=== PATIENT | female | born 1960 | race Caucasian/White ===

== ENCOUNTER → 2016-09-16 | Outpatient (CLI) | payer BC ==
[~2016-09-16] MED LIST: DICL1GEL28 TOP; LSN/2025 PO; MCR25 PO; METF-384 PO; OXYC-57 PO; PANT40TA PO; PIRO-104 PO; SIMV80TA2 PO; TRAMTAB5 PO
[2016-09-16 12:38] LABS: ESTIMATED AVERAGE GLUCOSE 177 mg/dl; HA1C FLAG Normal (Normal)
== END | disposition home or self-care (01) ==
LOC: C.LAB1850 09:38
PROVIDERS: ATTEND Internal Medicine
DX: M25.531 Pain in right wrist (principal)

== ENCOUNTER → 2016-10-30 | Outpatient (CLI) | payer BC ==
--- NOTE | 2016-10-30 10:13 | DIAGNOSTIC IMAGING REPORT ---
LEFT KNEE 1 OR 2 VIEWS ROUTINE CLINICAL HISTORY: M25.562 Left knee [id number] pain COMPARISON: None. DISCUSSION: Cortical fracture superior patella. This is superimposed upon a congenital bipartite patella. There is a possible fracture of the superior osteophyte. There is a small joint effusion. There is evidence of chondrocalcinosis. There is no evidence for soft tissue swelling. 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 Chondrocalcinosis. Electronically signed by: Wayne Garcia M.D. 10/30/2016 10:12 AM Dictated Date/Time: 10/30/2016 10:10 AM
== END | disposition home or self-care (01) ==
LOC: C.RAD1850 09:53
PROVIDERS: ATTEND Physician Assistant
DX: M25.562 Pain in left knee (principal)

== ENCOUNTER → 2016-11-12 | Outpatient (CLI) | payer BC ==
--- NOTE | 2016-11-12 15:18 | DIAGNOSTIC IMAGING REPORT ---
MRI OF THE LEFT KNEE CLINICAL HISTORY: Left knee pain. COMPARISON STUDY: Radiographs of left knee dated 10/30/2016. TECHNIQUE: MRI of the left knee was performed utilizing proton density, T1, and T2-weighted sequences in the axial, sagittal, coronal planes. IV contrast was not administered for this examination. FINDINGS: Menisci: Linear increased signal within the posterior horn of the medial meniscus likely represents mucoid degeneration as this does not clearly extend to the articular surface. The menisci are otherwise normal in appearance. Ligaments: The anterior and posterior cruciate ligaments are intact. The medial and lateral collateral ligaments are within normal limits. Extensor mechanism: The extensor mechanism is intact. Hoffa's fat pad is normal in appearance. Articular cartilage and bone: There is significant chondromalacia patella, with extent full thickness complete cartilage loss along the lateral patellar facet. There is also full thickness cartilage loss in the underlying femoral trochlea. There is approximately 50% thinning of the articular cartilage along the medial patellar facet. There is mild subchondral edema and subchondral cyst formation seen within the lateral patellar facet. There is only minimal degenerative thinning of the articular cartilage of the medial and lateral compartments. There is no MRI evidence of fracture. Degenerative subchondral cyst formation is seen peripherally within the medial tibial plateau. There is also degenerative geode formation noted in the tibial spine. This measures up to 1 cm. There are marginal osteophytes, lateral large than medial. Large patellar enthesophytes are observed. Joint effusion: There is a moderate joint effusion. There is a 4 mm joint body along the medial femoral condyle, best seen on axial image #21. Joint bodies are also suspected in the suprapatellar region. Soft tissues: There is mild subcutaneous soft tissue edema noted along the lateral aspect of the knee. There is mild symmetric atrophy of the regional musculature. No intramuscular edema is suggested. IMPRESSION: 1. Advanced chondromalacia patella with full-thickness cartilage loss throughout the lateral patellar facet and the underlying femoral trochlea. There is associated subchondral cyst formation and mild marrow edema. 2. The articular cartilage in the medial and lateral compartments is largely maintained. 3. Degenerative geode formation is noted in the proximal tibia as above. 4. Mucoid degeneration versus intrasubstance tear is noted in the posterior horn of the medial meniscus. Degeneration is favored. 5. There is no evidence of ligamentous injury in the left knee. The lateral meniscus is normal in appearance. 6. Joint effusion and joint bodies. Electronically signed by: Asif Steel M.D. 11/12/2016 3:17 PM Dictated Date/Time: 11/12/2016 3:08 PM
== END | disposition home or self-care (01) ==
LOC: C.MRI 14:15
PROVIDERS: ATTEND Family Medicine Sports Medicine
DX: M25.562 Pain in left knee (principal); Q74.1 Congenital malformation of knee; M25.462 Effusion, left knee

== ENCOUNTER → 2016-11-20 | Outpatient (CLI) | payer BC | END | disposition home or self-care (01) | LOC: C.RDSM 09:35 | PROVIDERS: ATTEND Physical Medicine & Rehabilitation Sports Medicine | DX: M25.562 Pain in left knee (principal) ==

== ENCOUNTER → 2017-02-10 | Day surgery (SDC) | payer BC ==
[2017-01-19 09:49] VITALS: Ht 153.7 cm; Wt 65.9 kg
[~2017-02-10] VITALS: Ht 153.7 cm; Wt 65.9 kg
[~2017-02-10] MED LIST changes: -DICL1GEL28 TOP; +IOPAMIDOL INJ 61% 15 ML VIAL ONE; +LIDOCAINE HCL 1% MPF 5 ML VIAL ONE; +SODIUM CHLORIDE 0.9% INJ 10 ML VIAL ONE
[2017-02-10 14:36] VITALS: TEMP 37.3
--- NOTE | 2017-02-10 14:49 | Discharge Instructions ---
Discharge Instructions Date of Service Feb 10, 2017. Visit Reason for Visit: Lumbar Radiculopathy Discharge Discharge Diagnosis / Problem: left leg pain Discharge Goals Goal(s): Decrease discomfort, Improve function Medications Stopped Medications Name(s): proxicam stopped. last dose on wednesday. Activity Recommendations Activity Limitations: resume your previous activity Anesthesia . Post Anesthesia Instructions: If you have had General Anesthesia or IV Sedation: * Do not drive today. * Resume driving when surgeon permits. * Do not make important decisions or sign legal documents today. * Call surgeon for: 1. Temperature elevations greater than 101 degrees F. 2. Uncontrollable pain. 3. Excessive bleeding. 4. Persistent nausea and vomiting. 5. Medication intolerance (nausea, vomiting or rash). * For nausea and vomiting use only clear liquids such as: tea, soda, bouillon until nausea subsides, then gradually increase diet as tolerated. * If you have any concerns or questions, call your surgeon's office. If physician is unavailable and it is an emergency, call 911 or go to the nearest emergency room. . Diet Recommendations Recommended Home Diet: resume previous diet Procedures Procedures Performed: LUMBAR EPIDURAL STEROID INJECTION Pending Studies Studies pending at discharge: no Medical Emergencies . Who to Call and When: Medical Emergencies: If at any time you feel your situation is an emergency, please call 911 immediately. . Non-Emergent Contact Non-Emergency issues call your: Specialist . . "Provider Documentation" section prepared by Adam Davis. .
[2017-02-10 14:55] VITALS: BP 112/73; PULSE 73; O2SAT 97
--- NOTE | 2017-02-10 15:21 | OPERATIVE REPORT ---
DATE OF OPERATION: 02/10/2017 PREOPERATIVE DIAGNOSIS: Grade-1 L5-S1 spondylolisthesis with left lower extremity radiculopathy. POSTOPERATIVE DIAGNOSIS: Same. PROCEDURE: Left paramedian L5-S1 intralaminar epidural steroid injection under fluoroscopic guidance. INDICATIONS: The patient is a 56-year-old white female who underwent a steroid injection in November 2015. She had done very well up until a short time ago when she began having the radicular pain returned. She presents today for an epidural injection into the back area. She has pain that is radicular in nature. PHYSICAL EXAMINATION: GENERAL: Pleasant female seated comfortably in no apparent distress. MUSCULOSKELETAL: She has tenderness to palpation over her left sciatic notch. She had normal lower extremity strength. Negative seated straight leg raises. Intact sensation distally. CONSENT: Verbal and written consent was obtained from the patient. Risks and benefits were reviewed. Risks include, but are not limited to epidural abscess, epidural hematoma, allergic reaction, and dural puncture. The patient wishes to proceed. DESCRIPTION OF PROCEDURE: The patient was taken back to the special procedures room of the [facility] and maintained in a prone position. Backside was cleansed with Betadine x3 and a dry sterile dressing was applied. Fluoroscope was used to identify the L5-S1 intralaminar space and overlying skin on the left side was anesthetized with 4 mL of lidocaine 1% with a 25-gauge 1-1/2 inch needle. A 22-gauge 3-1/2 inch Tuohy needle was then directed down towards the intralaminar space. It was advanced under lateral fluoroscopic guidance and loss of resistance was noted at a depth of 5.5 cm. Isovue-300 contrast 1 mL was injected in which demonstrated epidural uptake pattern involving the S1 nerve root. In addition, she then underwent injection after very slow introduction of the medicine after negative aspiration. DISPOSITION: 1. The patient was taken out into the discharge recovery area, where she will be discharged home once discharge criteria have been met. 2. Follow up in the [facility] office in 2-4 weeks. I attest to the content of the Intraoperative Record and any orders documented therein. Any exceptions are noted below. NIURKA
== END | disposition home or self-care (01) ==
LOC: X.SURG 13:55
PROVIDERS: ATTEND Physical Medicine & Rehabilitation
DX: M43.17 Spondylolisthesis, lumbosacral region (principal); M54.17 Radiculopathy, lumbosacral region; Z79.899 Other long term (current) drug therapy; Z79.84 Long term (current) use of oral hypoglycemic drugs

== ENCOUNTER → 2017-05-05 | Outpatient (CLI) | payer BC ==
[~2017-05-05] MED LIST changes: -IOPAMIDOL INJ 61% 15 ML VIAL ONE; -LIDOCAINE HCL 1% MPF 5 ML VIAL ONE; -SODIUM CHLORIDE 0.9% INJ 10 ML VIAL ONE
--- NOTE | 2017-05-05 16:15 | DIAGNOSTIC IMAGING REPORT ---
(RENAL)RETROPERITON COMP HISTORY: 56 years-old Female R31.9 [id number] acute hematuria COMPARISON: CT abdomen and pelvis 07/30/2010 TECHNIQUE: Multiple real-time sonographic images of the kidneys and urinary bladder were obtained assessing grayscale appearance and color flow FINDINGS: Right kidney measures 10.7 x 5.8 x 6.0 cm and is unremarkable without renal calculi or hydronephrosis. No focal mass lesions identified on the right. The left kidney measures 11.1 x 6.4 x 5.7 cm. There is an echogenic non-shadowing focus of the interpolar left kidney, 3 mm suggesting a nonobstructing calculus. There is no hydronephrosis or focal mass lesions identified on the left. Urinary bladder is unremarkable with bilateral ureteral jets documented. IMPRESSION: 1. 3 mm non-shadowing echogenic focus of the interpolar left kidney suggests renal calculus without hydronephrosis. 2. Unremarkable sonographic appearance of the right kidney and urinary bladder. The above report was generated using voice recognition software. It may contain grammatical, syntax or spelling errors. Electronically signed by: Alex Maciel M.D. 05/05/2017 4:14 PM Dictated Date/Time: 05/05/2017 4:11 PM
== END | disposition home or self-care (01) ==
LOC: C.ULTR 15:34
PROVIDERS: ATTEND Physician Assistant
DX: R31.9 Hematuria, unspecified (principal)

== ENCOUNTER → 2017-05-10 | Outpatient (CLI) | payer BC ==
--- NOTE | 2017-05-10 07:49 | DIAGNOSTIC IMAGING REPORT ---
CT SCAN OF THE ABDOMEN AND PELVIS WITHOUT IV CONTRAST CLINICAL HISTORY: Nephrolithiasis. COMPARISON STUDY: Abdominal CT dated 07/30/10. Renal ultrasound dated 05/05/2017. TECHNIQUE: CT scan of the abdomen and pelvis is performed from the lung bases to the proximal femora. Images are reviewed in the axial, sagittal, and coronal planes. IV contrast was not administered for this examination as per the referring clinician. A dose lowering technique was utilized adhering to the principles of ALARA. CT DOSE: 610.63 mGy.cm FINDINGS: Lung bases: The heart is normal in size and without pericardial effusion. Coronary artery calcifications are identified. Small calcified pleural plaques are present in the right lung base. Linear atelectasis versus scarring is seen at the right lung base. No airspace consolidation is identified typical for pneumonia and there is no pleural effusion. There is a tiny hiatal hernia. Liver: The unenhanced liver is normal in size, contour, and attenuation. There is no intrahepatic biliary ductal dilatation. Gallbladder: Unremarkable. Spleen: Normal in size and attenuation. Pancreas: The unenhanced pancreas is moderately atrophic and grossly unremarkable. Adrenal glands: Unremarkable. Kidneys: The unenhanced kidneys are normal in size and without hydronephrosis. Mild fullness of the right renal collecting systems unchanged from the 2011 examination. There are no renal calculi identified. There is no evidence of contour deforming renal mass lesion. Abdominal vasculature: The abdominal aorta is normal in course and caliber noting mild to moderate atherosclerotic calcification. Bowel: There are scattered colonic diverticula without CT evidence of acute diverticulitis. Mild colonic fecal retention is observed. No bowel obstruction is seen. The appendix is well-visualized and normal. Peritoneum: There is no intraperitoneal free air or abdominal ascites. There is a fat-containing umbilical hernia. Lymphadenopathy: None. Pelvic viscera: The bladder is normal as visualized. The uterus is surgically absent noting a prominent cervical cuff. No adnexal lesion is seen . Surgical clips are noted in the pelvis. Skeletal structures: The skeletal structures are osteopenic. There is mild to moderate lumbosacral spondylosis and scoliosis. There is grade 1 anterolisthesis at L5-S1. No lytic or blastic lesions are seen. IMPRESSION: 1. There are no acute infectious or inflammatory findings in the abdomen or pelvis. 2. No renal calculi are identified as clinically queried. 3. Calcification containing pleural plaques are present the right lung base. These were also seen in 2010 and are likely chronic. 4. Additional findings as above. Electronically signed by: Asif Steel M.D. 05/10/2017 7:48 AM Dictated Date/Time: 05/10/2017 7:40 AM
== END | disposition home or self-care (01) ==
LOC: C.CTS 06:28
PROVIDERS: ATTEND Physician Assistant
DX: N20.0 Calculus of kidney (principal); R91.8 Other nonspecific abnormal finding of lung field

== ENCOUNTER 2017-09-09 21:43 | Emergency (ER) | payer BC, OTHER ==
[~2017-09-09] VITALS: Ht 153.7 cm; Wt 68.4 kg
[2017-09-09 21:45] VITALS: TEMP 36.7; Ht 153.7 cm; Wt 68.4 kg
[2017-09-09] MEDS ORDERED: CLC/300 PO (23:00)
[2017-09-09] MEDS ORDERED: ZCR80 PO (23:00)
[2017-09-09] MEDS ORDERED: GLYB2.5T7 PO (23:00)
[2017-09-09 23:27] LABS: BASO % 0.4 %; BASO ABS # 0.03 K/uL (0-0.2); EOS % 1.9 %; EOS ABS # 0.13 K/uL (0-0.5); HEMATOCRIT 33.9 % (37-47); HEMOGLOBIN 11.9 g/dL (12.0-16.0); IG# 0.01 K/uL (0.00-0.02); LYMPH % 43.4 %; LYMPH ABS # 2.92 K/uL (1.2-3.4); MEAN CELL VOLUME 90.9 fL (80-100); MEAN CORPUSCULAR HEMOGLOBIN 31.9 pg (25-34); MEAN CORPUSCULAR HGB CONC 35.1 g/dl (32-36); MEAN PLATELET VOLUME 9.8 fL (7.4-10.4); MONO % 8.9 %; NEUT % 45.3 %; NEUT ABS # 3.04 K/uL (1.4-6.5); PLATELET COUNT 349 K/uL (130-400); RED CELL DISTRIBUTION WIDTH CV 12.4 % (11.5-14.5); RED CELL DISTRIBUTION WIDTH SD 41.3 fL (36.4-46.3); WHITE BLOOD COUNT 6.73 K/uL (4.8-10.8)
[2017-09-09 23:47] LABS: CALCIUM 9.4 mg/dl (8.5-10.1); CREATININE 0.87 mg/dl (0.60-1.20); POTASSIUM 3.7 mmol/L (3.5-5.1)
[2017-09-10 00:39] VITALS: BP 139/71; PULSE 85; O2SAT 96
--- NOTE | 2017-09-10 05:45 | EMERGENCY ROOM VISIT NOTE ---
History First contact with patient: 21:55 Chief Complaint: HEMATURIA Stated Complaint: BLOOD IN URINE History of Present Illness The patient is a 57 year old female who presents to the Emergency Room with complaints of red color to her urine today who states several months ago she had the same episode. Patient states she did have some beats today. She has a history of kidney stones. No recent exercise. Patient denies chest pain, dyspnea, abdominal pain, flank pain, dysuria, urinary frequency. She does not smoke. Review of Systems An 10 system review of systems was completed with positives and pertinent negatives listed in the HPI. Past Medical/Surgical History Diabetes, kidney stones, hyperlipidemia, GERD, hypertension, hysterectomy, shoulder surgery, arthritis Social History Smoking Status: Never Smoker Marital Status: single Occupation Status: employed Current/Historical Medications Scheduled Clindamycin HCl (Clindamycin HCl), PO UD Glyburide (Diabeta), 2.5 MG PO BID Hctz/Lisinopril (Lisinopril/Hctz 20/25 Mg), 1 TAB PO QAM Metformin Hcl (Glucophage), 1,000 MG PO BID Pantoprazole (Protonix), 40 MG PO QAM Piroxicam (Piroxicam), 20 MG PO BID Simvastatin (Zocor), 80 MG PO HS Simvastatin (Simvastatin), 80 MG PO DAILY Scheduled PRN Oxycodone/Acetaminophen 5MG/325MG (Percocet 5MG/325MG), 1 TABLET PO Q6H PRN for Pain Tramadol/Acetaminophen (Ultracet), PO Q6H PRN for / Physical Exam Vital Signs Date Time Temp Pulse Resp B/P (MAP) Pulse Ox O2 Delivery O2 Flow Rate FiO2 09/10/17 00:39 85 18 139/71 96 09/09/17 21:45 36.7 88 18 140/79 95 Room Air Physical Exam VITALS: Vitals are noted on the nurse's note and reviewed by myself. Vital signs stable. GENERAL: Pleasant female, in no acute distress, nondiaphoretic, well-developed well-nourished. SKIN: Capillary reflex less than 2 seconds. HEENT: Normocephalic. PERRLA. EOMI. Nares patent. Mucous membranes moist. Neck is supple without nuchal rigidity. HEART: Regular rate and rhythm without murmurs gallops or rubs. LUNGS: Clear to auscultation bilaterally without wheezes, rales or rhonchi. No retractions or accessory muscle use. ABDOMEN: Positive bowel sounds x 4. Normal tympanic percussion. Soft, nontender, without masses or organomegaly. [place] sign negative. No guarding or rebound tenderness. MUSCULOSKELETAL: No gross musculoskeletal defects. NEURO: Patient was alert and oriented to person place and time. Normal sensation to light and sharp touch. No focal neurological deficits. Medical Decision & Procedures Laboratory Results 09/09/17 22:16 Red Blood Count 3.73, Mean Corpuscular Volume 90.9, Mean Corpuscular Hemoglobin 31.9, Mean Corpuscular Hemoglobin Concent 35.1, Mean Platelet Volume 9.8, Neutrophils (%) (Auto) 45.3, Lymphocytes (%) (Auto) 43.4, Monocytes (%) (Auto) 8.9, Eosinophils (%) (Auto) 1.9, Basophils (%) (Auto) 0.4, Neutrophils # (Auto) 3.04, Lymphocytes # (Auto) 2.92, Monocytes # (Auto) 0.60, Eosinophils # (Auto) 0.13, Basophils # (Auto) 0.03 09/09/17 22:16 Test 09/09/17 22:04 09/09/17 22:16 Urine Color PINK Urine Appearance CLEAR (CLEAR) Urine pH (4.5-7.5) Urine Specific [place] 1.007 (1.000-1.030) Urine Protein NEG (NEG) Urine Glucose (UA) (NEG) Urine Ketones (NEG) Urine Occult Blood (NEG) Urine Nitrite (NEG) Urine Bilirubin (NEG) Urine Urobilinogen (NEG) Urine Leukocyte Esterase (NEG) Urine RBC 0-4 /hpf (0-4) Urine WBC 1-5 /hpf (0-5) Urine Epithelial Cells 10-20 /lpf (0-5) Urine Bacteria NEG (NEG) White Blood Count 6.73 K/uL (4.8-10.8) Red Blood Count 3.73 M/uL (4.2-5.4) Hemoglobin 11.9 g/dL (12.0-16.0) Hematocrit 33.9 % (37-47) Mean Corpuscular Volume 90.9 fL (80-100) Mean Corpuscular Hemoglobin 31.9 pg (25-34) Mean Corpuscular Hemoglobin Concent 35.1 g/dl (32-36) Platelet Count 349 K/uL (130-400) Mean Platelet Volume 9.8 fL (7.4-10.4) Neutrophils (%) (Auto) 45.3 % Lymphocytes (%) (Auto) 43.4 % Monocytes (%) (Auto) 8.9 % Eosinophils (%) (Auto) 1.9 % Basophils (%) (Auto) 0.4 % Neutrophils # (Auto) 3.04 K/uL (1.4-6.5) Lymphocytes # (Auto) 2.92 K/uL (1.2-3.4) Monocytes # (Auto) 0.60 K/uL (0.11-0.59) Eosinophils # (Auto) 0.13 K/uL (0-0.5) Basophils # (Auto) 0.03 K/uL (0-0.2) RDW Standard Deviation 41.3 fL (36.4-46.3) RDW Coefficient of Variation 12.4 % (11.5-14.5) Immature Granulocyte % (Auto) 0.1 % Immature Granulocyte # (Auto) 0.01 K/uL (0.00-0.02) Anion Gap 9.0 mmol/L (3-11) Est Creatinine Clear Calc Drug Dose 60.9 ml/min Estimated GFR () 84.5 Estimated GFR (Non- 72.9 BUN/Creatinine Ratio 22.0 (10-20) Calcium Level 9.4 mg/dl (8.5-10.1) Total Creatine Kinase 164 U/L (26-192) ED Course Prior records reviewed and summarized as above. Triage Nursing notes reviewed. The patient's history was concerning for red color to urine Differential diagnosis: Etiologies such as side effect of eating beats, UTI, renal colic, kidney problems, rhabdomyolysis as well as others were entertained.. Physical examination: As above ER treatment provided: Patient was observed On reassessment the patient felt better. Diagnostics interpreted by me: The labs revealed urine negative hematuria. Stable H&H. Normal creatinine Imaging studies: CT SCAN OF THE ABDOMEN AND PELVIS WITHOUT IV CONTRAST CLINICAL HISTORY: Nephrolithiasis. COMPARISON STUDY: Abdominal CT dated 07/30/10. Renal ultrasound dated 05/05/2017. TECHNIQUE: CT scan of the abdomen and pelvis is performed from the lung bases to the proximal femora. Images are reviewed in the axial, sagittal, and coronal planes. IV contrast was not administered for this examination as per the referring clinician. A dose lowering technique was utilized adhering to the principles of ALARA. CT DOSE: 610.63 mGy.cm FINDINGS: Lung bases: The heart is normal in size and without pericardial effusion. Coronary artery calcifications are identified. Small calcified pleural plaques are present in the right lung base. Linear atelectasis versus scarring is seen at the right lung base. No airspace consolidation is identified typical for pneumonia and there is no pleural effusion. There is a tiny hiatal hernia. Liver: The unenhanced liver is normal in size, contour, and attenuation. There is no intrahepatic biliary ductal dilatation. Gallbladder: Unremarkable. Spleen: Normal in size and attenuation. Pancreas: The unenhanced pancreas is moderately atrophic and grossly unremarkable. Adrenal glands: Unremarkable. Kidneys: The unenhanced kidneys are normal in size and without hydronephrosis. Mild fullness of the right renal collecting systems unchanged from the 2011 examination. There are no renal calculi identified. There is no evidence of contour deforming renal mass lesion. Abdominal vasculature: The abdominal aorta is normal in course and caliber noting mild to moderate atherosclerotic calcification. Bowel: There are scattered colonic diverticula without CT evidence of acute diverticulitis. Mild colonic fecal retention is observed. No bowel obstruction is seen. The appendix is well-visualized and normal. Peritoneum: There is no intraperitoneal free air or abdominal ascites. There is a fat-containing umbilical hernia. Lymphadenopathy: None. Pelvic viscera: The bladder is normal as visualized. The uterus is surgically absent noting a prominent cervical cuff. No adnexal lesion is seen . Surgical clips are noted in the pelvis. Skeletal structures: The skeletal structures are osteopenic. There is mild to moderate lumbosacral spondylosis and scoliosis. There is grade 1 anterolisthesis at L5-S1. No lytic or blastic lesions are seen. IMPRESSION: 1. There are no acute infectious or inflammatory findings in the abdomen or pelvis. 2. No renal calculi are identified as clinically queried. 3. Calcification containing pleural plaques are present the right lung base. These were also seen in 2011 and are likely chronic. 4. Additional findings as above. Electronically signed by: Asif Steel M.D. [~ rep ct add3]] (RENAL)RETROPERITON COMP HISTORY: 56 years-old Female R31.9 [id number] acute hematuria COMPARISON: CT abdomen and pelvis 07/30/2010 TECHNIQUE: Multiple real-time sonographic images of the kidneys and urinary bladder were obtained assessing grayscale appearance and color flow FINDINGS: Right kidney measures 10.7 x 5.8 x 6.0 cm and is unremarkable without renal calculi or hydronephrosis. No focal mass lesions identified on the right. The left kidney measures 11.1 x 6.4 x 5.7 cm. There is an echogenic non-shadowing focus of the interpolar left kidney, 3 mm suggesting a nonobstructing calculus. There is no hydronephrosis or focal mass lesions identified on the left. Urinary bladder is unremarkable with bilateral ureteral jets documented. IMPRESSION: 1. 3 mm non-shadowing echogenic focus of the interpolar left kidney suggests renal calculus without hydronephrosis. 2. Unremarkable sonographic appearance of the right kidney and urinary bladder. The above report was generated using voice recognition software. It may contain grammatical, syntax or spelling errors. Electronically signed by: Alex Maciel M.D. This appears to be isolated urine discoloration that could be related to eating the beats. Patient had no hematuria on urinalysis. Recent ultrasound of the kidneys were unremarkable along with CT scan. Patient was advised to follow-up with her family care doctor in a few days for further evaluation treatment or here in the ER sooner for abdominal pain, fevers, urinary problems, worsening signs or symptoms or as needed. By the evaluation outlined above emergent etiologies such as UTI, renal colic, as well as others were deemed relatively unlikely. The pt informed about the findings as listed above. All questions were answered and pleased with the treatment. Return instructions were outlined and the patient was discharged in stable condition. Referral: The patient was referred back to primary care physician for follow-up in 2 to 3 days for a recheck of the current condition. The chart was completed utilizing [employer] voice recognition software. Grammatical errors, random word insertions, pronoun errors, and incomplete sentences are an occassional consequence of this system due to software limitations, ambient noise, and hardware issues. Any formal questions or concerns about the content, text, or information contained within the body of this dictation should be directly addressed to the physician construction assistant for clarification. Medical Decision As above Medication Reconcilliation Current Medication List: was personally reviewed by me Blood Pressure Screening Patient's blood pressure: Normal blood pressure Impression Primary Impression: Urine discoloration Additional Impression: Anemia Departure Information Dispostion Home / Self-Care Condition GOOD Forms WORK / SCHOOL INSTRUCTIONS, HOME CARE DOCUMENTATION FORM, Days off work : 2 Work Instructions, IMPORTANT VISIT INFORMATION Patient Instructions My [facility] Additional Instructions Keep a log of your food and drink intake and review this with your family care doctor. Certain foods and drinks can change the color of your urine. Rest and drink plenty of fluids as tolerated. Continue current medications. Return to the ER immediately for worsening or persistent urine problems, abdominal pain, vomiting, fevers, chest pains, difficulty breathing, worsening of your condition, or as needed. Follow up with your primary physician in 2-3 days for a recheck of your current condition. Problem Qualifiers
== END 2017-09-10 00:40 | disposition home or self-care (01) ==
LOC: C.EDB 21:44 → C.EDC 09-10 00:40
DX: R82.90 Unspecified abnormal findings in urine (principal); D64.9 Anemia, unspecified; E78.5 Hyperlipidemia, unspecified; I10 Essential (primary) hypertension; E11.9 Type 2 diabetes mellitus without complications; M19.90 Unspecified osteoarthritis, unspecified site; K21.9 Gastro-esophageal reflux disease without esophagitis; Z87.442 Personal history of urinary calculi; Z79.84 Long term (current) use of oral hypoglycemic drugs; Z79.899 Other long term (current) drug therapy

== ENCOUNTER → 2017-10-27 | Outpatient (CLI) | payer OTHER ==
[~2017-10-27] MED LIST changes: +CLC/300 PO; +GLYB2.5T7 PO; -MCR25 PO; +ZCR80 PO
== END | disposition home or self-care (01) ==
LOC: C.PATHSPEC 17:12
PROVIDERS: ATTEND Urology
DX: R31.9 Hematuria, unspecified (principal)

== ENCOUNTER → 2017-11-01 | Day surgery (SDC) | payer OTHER ==
[2017-10-28 15:23] VITALS: Ht 153.7 cm; Wt 65.9 kg
[~2017-11-01] VITALS: Ht 153.7 cm; Wt 65.9 kg
[~2017-11-01] MED LIST changes: -CLC/300 PO; +IOPAMIDOL INJ 61% 15 ML VIAL ONE; +LIDOCAINE HCL 1% MPF 5 ML VIAL ONE; +SODIUM CHLORIDE 0.9% INJ 10 ML VIAL ONE
--- NOTE | 2017-11-01 14:19 | History & Physical Bridge - [place] ---
H&P Re-Evaluation Bridge Note: I have examined the patient, reviewed the History & Physical and in the interval since the performance of the History & Physical I have noted the following changes of clinical significance: No changes noted
--- NOTE | 2017-11-01 14:40 | [facility] Post Operative Brief Note ---
Immediate Operative Summary Operative Date November 01, 2017. Pre-Operative Diagnosis Lumbar spondylolisthesis with left lower extremity radiculopathy Post-Operative Diagnosis Same Procedure(s) Performed Lumbar Epidural Steroid Injection Surgeon Dr. Scarlett Davis Organizational Effectiveness Consultant Surgeon(s) None Estimated Blood Loss 0 Findings Consistent with Post-Op Diagnosis Specimens NA Drains None Anesthesia Type Local Complication(s) none Disposition Disposition:
[2017-11-01 14:41] VITALS: TEMP 37
--- NOTE | 2017-11-01 14:41 | Discharge Instructions ---
Discharge Instructions Date of Service November 01, 2017. Visit Reason for Visit: Lumbar Radiculopathy; Spondylolisthesis Discharge Discharge Diagnosis / Problem: left leg pain Discharge Goals Goal(s): Decrease discomfort, Improve function Activity Recommendations Activity Limitations: resume your previous activity Anesthesia . Post Anesthesia Instructions: If you have had General Anesthesia or IV Sedation: * Do not drive today. * Resume driving when surgeon permits. * Do not make important decisions or sign legal documents today. * Call surgeon for: 1. Temperature elevations greater than 101 degrees F. 2. Uncontrollable pain. 3. Excessive bleeding. 4. Persistent nausea and vomiting. 5. Medication intolerance (nausea, vomiting or rash). * For nausea and vomiting use only clear liquids such as: tea, soda, bouillon until nausea subsides, then gradually increase diet as tolerated. * If you have any concerns or questions, call your surgeon's office. If physician is unavailable and it is an emergency, call 911 or go to the nearest emergency room. . Diet Recommendations Recommended Home Diet: resume previous diet Procedures Procedures Performed: Lumbar Epidural Steroid Injection Pending Studies Studies pending at discharge: no Medical Emergencies . Who to Call and When: Medical Emergencies: If at any time you feel your situation is an emergency, please call 911 immediately. . Non-Emergent Contact Non-Emergency issues call your: Specialist . . "Provider Documentation" section prepared by Adam Davis. .
[2017-11-01 14:57] VITALS: BP 133/87; PULSE 74; O2SAT 97
--- NOTE | 2017-11-01 19:51 | OPERATIVE REPORT ---
DATE OF OPERATION: 11/01/2017 PREOPERATIVE DIAGNOSES: Grade 1 L5-S1 spondylolisthesis, left lower extremity radiculopathy. POSTOPERATIVE DIAGNOSIS: Grade 1 L5-S1 spondylolisthesis, left lower extremity radiculopathy. PROCEDURE: Left paramedian L5-S1 intralaminar epidural steroid injection under fluoroscopic guidance. INDICATIONS: Patient is a 57-year-old white female who presents today for an epidural injection. She has received these in the past with good results, the last one being done in 04/2017. Recently the pain has been starting to return and is problematic down her left leg. CONSENT: Verbal and written consent was obtained from the patient. Risks and benefits were reviewed. Risks include but are not limited to epidural abscess, epidural hematoma, allergic reaction, dural puncture. Patient wishes to proceed. DESCRIPTION OF PROCEDURE: Patient was taken back to the special procedures room of [facility]. She was maintained in a prone position. Backside was cleansed with Betadine x3 and a dry sterile dressing was applied. Fluoroscope was used to identify L5-S1 intralaminar space. Overlying skin on the left side was anesthetized with 4 mL of lidocaine 1% 25 gauge 1-1/2-inch needle and with 4 mL of lidocaine 1% 22-gauge 3-1/2 inch Tuohy needle was then directed down towards the intralaminar space. It was advanced under lateral fluoroscopic guidance. Loss of resistance was noted at a depth of 5 cm. Isovue-300 contrast 1 mL was injected which demonstrated epidural uptake pattern which was confirmed with a lateral view. She then underwent injection after negative aspiration of 40 mg of Depo-Medrol, 4 mL of preservative free sodium chloride. Injection was well tolerated and reproduced a familiar transient radicular sensation down the left leg. DISPOSITION: 1. Patient is taken out into the discharge recovery area where she will be discharged home once discharge criteria have been met. 2. Follow up in the [facility] office in 4 weeks' time. I attest to the content of the Intraoperative Record and any orders documented therein. Any exception s are noted below.
== END | disposition home or self-care (01) ==
LOC: X.SURG 13:28
PROVIDERS: ATTEND Physical Medicine & Rehabilitation
DX: M43.17 Spondylolisthesis, lumbosacral region (principal); M54.10 Radiculopathy, site unspecified

== ENCOUNTER → 2018-01-18 | Outpatient (CLI) | payer OTHER ==
[~2018-01-18] MED LIST changes: -IOPAMIDOL INJ 61% 15 ML VIAL ONE; -LIDOCAINE HCL 1% MPF 5 ML VIAL ONE; +LISI20TA11 PO; -LSN/2025 PO; -SODIUM CHLORIDE 0.9% INJ 10 ML VIAL ONE
--- NOTE | 2018-01-18 08:34 | DIAGNOSTIC IMAGING REPORT ---
CERVICAL WITHOUT CONTRAST HISTORY: Pain. Neuropathy. SPONDYLIOSIS CERV SPINE TECHNIQUE: Multiplanar multisequence MRI of the cervical spine was performed without the use of contrast. COMPARISON STUDY: None. FINDINGS: Significant degenerative disc change throughout. Arterial extradural defects at virtually all levels of the cervical region. Signal characteristics of the cervical cord appear unremarkable. C2-C3: Negative C3-C4: Moderate broad-based disc herniation. Mild impact anterior cervical cord. Significant narrowing right to lesser extent left neuroforamina. C4-C5: Moderate osteophytic narrowing of the neuroforamina bilaterally C5-C6: Broad-based disc herniation with moderate impact anterior aspect cervical cord. Significant narrowing of the neuroforamina bilaterally C6-C7: No significant central canal or neural foraminal narrowing. C7-T1: No significant central canal or neural foraminal narrowing. IMPRESSION: 1. Considerable degenerative disc change throughout the entire cervical region. 2. Broad-based bulging/herniated disc C3-C4 with moderate impact anterior cervical cord and significant narrowing of the right and to a lesser extent left neuroforamina. 3. Moderate osteophytic narrowing neuroforamina bilaterally C4-C5. 4. Broad-based disc herniation C5-C6 with moderate impact anterior cervical cord and narrowing of the neuroforamina bilaterally. The above report was generated using voice recognition software. It may contain grammatical, syntax or spelling errors. Electronically signed by: Wayne Garcia M.D. 01/18/2018 8:32 AM Dictated Date/Time: 01/18/2018 8:27 AM
== END | disposition home or self-care (01) ==
LOC: C.MRI 07:07
PROVIDERS: ATTEND Physical Medicine & Rehabilitation
DX: M47.812 Spondylosis without myelopathy or radiculopathy, cervical region (principal)

== ENCOUNTER 2024-07-24 16:33 | Observation (INO) ==
--- NOTE | 2024-07-24 17:07 | ED Triage Note ---
Date of Service July 24, 2024 Provider in Triage Author: Summer Jackson History of Present Illness This patient was briefly evaluated while in triage. An abbreviated physical exam was performed. This patient is a 63-year-old Female who presents to the ED for evaluation after vomiting. Pt. states Wednesday evening went out to dinner. 3 hours later, started vomiting. Had vomiting for about 24 hours. Assumed food poisoning. Today, having headache, "gut pain", pain "into the middle of my back", and decreased appetite. No vomiting in over 24 hours. Physical Exam VITALS: Vitals are noted on the nurse's note and reviewed by myself. GENERAL: This is a 63 year old female, in no acute distress, nondiaphoretic, well-developed well-nourished. SKIN: No obvious rashes, edema, erythema HEAD: Normocephalic atraumatic. EYES: Conjunctivae without injection, sclerae without icterus. NECK: No JVD. LUNGS: No retractions or accessory muscle use. MUSCULOSKELETAL: Normal gait. NEURO: Patient was alert and oriented to person place and time. No focal neurological deficits. Initial orders for labs and / or imaging were placed and patient was placed in the waiting area until a bed is available. Please see further documentation for the full ED course.
[2024-07-24] MEDS: SODIUM CHLORIDE 0.9% 1,000 ML IV ONE (17:29)
[2024-07-24] MEDS: ACETAMINOPHEN 1,000 MG/100 ML VIAL IV STA (17:29)
[2024-07-24 17:42] LABS: Basophils # (auto) 0.04 K/uL (0.00-0.20); Basophils % (auto) 0.5 %; Eosinophils # (auto) 0.08 K/uL (0.00-0.50); Hematocrit (blood only) 28.3 % (37.0-47.0); Hemoglobin 9.9 g/dl (12.0-16.0); Immature Granulocytes # (auto) 0.02 K/uL (0.01-0.20); Immature Granulocytes % (auto) 0.3 %; Lymphocytes # (auto) 2.18 K/uL (1.20-3.40); Lymphocytes % (auto) 28.3 %; Mean Corpuscular Hemoglobin 31.8 pg (25.0-34.0); Mean Platelet Volume 10.5 fL (9.4-12.4); Monocytes # (auto) 0.53 K/uL (0.11-0.59); Monocytes % (auto) 6.9 %; Neutrophils # (auto) 4.86 K/uL (1.40-6.50); Platelet Count 267 K/uL (130-400); RDW Coefficient of Variation 12.8 % (11.5-14.5); RDW Standard Deviation 42.6 fL (36.4-46.3); Red Blood Count 3.11 M/uL (4.20-5.40); White Blood Count 7.71 K/ul (4.8-10.8)
[2024-07-24 17:58] LABS: Albumin Level 4.3 gm/dl (3.4-5.0); Bilirubin,Total 0.4 mg/dl (0.2-1.0); Calcium 10.6 mg/dl (8.6-10.3); Potassium 3.5 mmol/L (3.5-5.1)
[2024-07-24 18:05] LABS: Albumin Globulin Ratio 1.8 (0.9-2); BUN Creatinine Ratio 44.6 (10-20); Creatinine Clr Calc Pharmacy 62.1 ml/min; Globulin 2.4 gm/dl (2.5-4.0); Total Protein 6.7 gm/dl (6.0-8.3)
[2024-07-24 18:14] LABS: Partial Thromboplastin Ratio 0.8; Partial Thromboplastin Time 21 Seconds (21-31); Prothrombin Time 10.4 Seconds (9.0-12.0)
[2024-07-24] MEDS: OPTIRAY 320 100ml IV ONE (18:46)
[2024-07-24 19:24] LABS: Appearance Urine Clear (Clear); Bilirubin Urine Negative (Negative); Blood Urine Negative (Negative); Color Urine Yellow; Glucose Urine UA Negative (Negative); Ketones Urine Negative (Negative); Leukocyte Esterase Urine Negative (Negative); Nitrite Urine Negative (Negative); Protein Urine Negative (Negative); Specific Gravity Urine 1.011 (1.000-1.030); Urobilinogen Urine Negative (Negative); pH Urine 6.5 (4.5-7.5)
[2024-07-24] MEDS: PANTOprazole 40 MG in DEXTROSE 5% MINI-B 100 ML IV SCH (20:37)
[2024-07-24] MEDS: PANTOprazole 80 MG in DEXTROSE 5% 100 ML IV ONE (20:37)
[2024-07-24] MEDS: PANTOPRAZOLE BOLUS/DRIP IV STA (20:37)
--- NOTE | 2024-07-24 20:39 | History & Physical Report ---
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 States that her vomit was dark brown/black in color and was described as thick in consistency. Takes Piroxicam twice daily x months, h/o ETOH use and no recent use. ED workup H/H 9.9/28.3, Na 135, BUN 33, BUN/Cr ratio 44.6, and Ca 10.6. CTAP w/ no acute findings. Received 1L NSS and pantoprazole in ED. #GI bleed N/V dark in color and thick, w/ black stool x 1 day and some abdominal discomfort, unable to classify exactly how this feels at time of admission, just "odd." History of a scope "years ago" but unsure why and believes that it was WNL. Suspect UGI bleed given H/H and elevated BUN; Does take NSAIDs BID x months. One IV was in place at time of admission, 2 large bore IVs to be placed before transfer to unit. Hemodynamically stable at time of admission, no tachycardia and BP stable. - H&H on admission 9.03/18.3, will trend H/H q6hr, A- blood type, transfuse if Hg < 7; BUN 33 at admission; Hemoccult positive - HOLD ASA and piroxicam - NPO; no NG tube necessary at time of admission - Continue Protonix IV - GI consulted- appreciate input and recs #DMT2, insulin dependent H/o DMT2, started on insulin ~ 1 year ago. At home regimen glargine 26U qAM, lispro 4U w/ breakfast and 5U with dinner, metformin. - Hold po meds - Most recent A1C 05/2024 @ 7.6% - SSI with target BSG range 110-140mg/dL, CF 35, carb ratio 12; glargine 13U BID - BSG ACHS once eating, q6h while npo - Pharm glycemic management consult placed, appreciate assistance- Adjust regimen as needed #Sinusitis- started on Augmentin outpatient, symptoms overall controlled; held at admission given GI symptoms and do not want to worsen until GI is able to evaluate #Chronic pain, back- Gabapentin, oxycodone-acetaminophen #HTN- Chlorthalidone, lisinopril, amlodipine - held at admission #HLD- Rosuvastatin Dispo: Admit, med/tele VTE Prophylaxis: SCDs, no chemical prophylaxis at admission This document was dictated utilizing [employer]. Please excuse any grammatical errors that may be secondary to use of this software. 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 States that her vomit was dark brown/black in color and was described as thick in consistency. Emesis x 4, and her last BM was 1 few hours before arrival to the ED. Also states that her BM have been black in color and she has been having some dizziness as well, unable to categorize this further. Her co- worker noted that she appeared more pale than usual the day of arrival. Does take anti-inflammatories twice daily and states that she has been doing this for years. History of ETOH use but no longer uses, per patient. ED workup reveals H/H 9.9/28.3, no WBC, Na 135, BUN 33, BUN/Cr ratio 44.6, and Ca 10.6. CTAP w/ no acute findings; stable umbilical hernia, stable dilated CBD, mild colonic fecal loading, stable R calcified pleura plaques and mild pleural effusion/thickening. Received 1L NSS and pantoprazole in ED. Please see Dr. Sullivan's attestation for adjustments/additions to the treatment plan. Allergies Allergy/AdvReac Type Severity Reaction Status Date / Time Cipro Allergy Unknown HIVES VOMIT Verified 11/01/17 13:35 ciprofloxacin Allergy Unknown HIVES VOMIT Verified 07/24/24 20:18 erythromycin base Allergy Unknown SWELLING Verified 07/24/24 20:18 AND HIVES Sulfa (Sulfonamide Allergy Unknown SWELLING Verified 07/24/24 20:18 Antibiotics) AND HIVES dulaglutide [From Trulicity] AdvReac Intermediate Abdominal Verified 07/24/24 22:58 Pain fosfomycin AdvReac Intermediate Dizziness Verified 07/24/24 20:18 semaglutide [From Rybelsus] AdvReac Intermediate Abdominal Verified 07/24/24 22:58 Pain nitrofurantoin AdvReac Unknown Vomiting Verified 07/24/24 20:18 [From Macrobid] Home Medications Medication Instructions Recorded Confirmed Type lancets 30 gauge (StarCite, Part of Active NetworkTouch Delica #25 ea 02/03/19 07/17/24 History Lancets) cranberry fruit 450 mg tablet 0 mg PO QAM ##0 02/20/22 07/24/24 History (cranberry) diclofenac sodium 1 % topical gel 2 g topical QID PRN Pain 02/20/22 07/24/24 History methocarbamol 500 mg tablet 500 mg PO BID PRN muscle cramping 10/14/22 07/24/24 History mecobalamin (vitamin B12) 0 mg PO QAM 02/03/23 07/24/24 History aspirin 81 mg tablet,delayed 81 mg PO DAILY 07/21/23 07/24/24 History release (Adult Low Dose Aspirin) flash glucose scanning reader #1 ea 07/30/23 07/17/24 Rx (FreeStyle Twin 2 Glide) blood sugar diagnostic (OneTouch #200 ea 11/01/23 07/17/24 Rx Verio test strips) blood-glucose meter (OneTouch #1 ea 11/01/23 07/17/24 Rx Verio Flex Start kit) lancets 33 gauge (OneTouch Delica #200 ea 11/03/23 07/17/24 Rx Plus Lancet) pen needle, diabetic 32 gauge x #400 ea 11/26/23 07/17/24 Rx 5/32" flash glucose sensor (Kapow Eventsyle #2 ea 02/07/24 07/17/24 Rx Twin 2 Sensor kit) amlodipine 5 mg tablet 5 mg PO DAILY #90 tabs 06/19/24 07/24/24 Rx chlorthalidone 25 mg tablet 25 mg PO QAM #90 tabs 06/19/24 07/24/24 Rx fluticasone propionate 50 2 spray intranasal QAM PRN 06/19/24 07/24/24 Rx mcg/actuation nasal Congestion #48 grams spray,suspension lisinopril 40 mg tablet 40 mg PO QAM #90 tabs 06/19/24 07/24/24 Rx metformin 500 mg tablet,extended 1,000 mg (2 x 500 mg) PO BID #360 06/19/24 07/24/24 Rx release 24 hr tabs piroxicam 10 mg capsule 10 mg PO BID #180 caps 06/19/24 07/24/24 Rx rosuvastatin 20 mg tablet 20 mg PO HS #90 tabs 06/19/24 07/24/24 Rx oxycodone-acetaminophen 5 mg-325 1 - 2 tab PO BID PRN pain #60 tabs 06/30/24 07/24/24 Rx mg tablet insulin lispro 100 unit/mL See Rx Instructions subcut 07/14/24 07/24/24 Rx subcutaneous pen (Admelog SoloStar .COMPLEX #15 mL U-) amoxicillin 500 mg-potassium 1 tab PO BID 10 days #20 tabs 07/17/24 07/24/24 Rx clavulanate 125 mg tablet (Augmentin) cholecalciferol (vitamin D3) 25 0 mcg PO DAILY 07/24/24 07/24/24 History mcg (1,000 unit) tablet (Vitamin D3) gabapentin 300 mg capsule 300 mg PO QAM 07/24/24 07/24/24 History gabapentin 300 mg capsule 600 mg PO HS 07/24/24 07/24/24 History insulin glargine U-300 conc 300 26 unit subcut QAM 07/24/24 07/24/24 History unit/mL (1.5 mL) subcutaneous pen Past Med/Surg History Problem List GI bleed Jaw pain PND (post-nasal drip) Congestion of nasal sinus Sinusitis Spinal stenosis Vitamin B12 deficiency Vitamin D deficiency Diabetes mellitus type 2, insulin dependent Osteoarthritis (Chronic) Hypertension (Chronic) Hypercholesterolemia (Chronic) Type 2 diabetes mellitus (Chronic) oral meds Insomnia Left lumbar radiculopathy Chronic low back pain with left-sided sciatica Gastritis hx-taskes meds Medical History Recurrent UTI Coronary artery calcification Cervical radiculopathy Bilateral carpal tunnel syndrome Microscopic hematuria Pleural plaque Pulmonary nodules Dysfunction of left eustachian tube Sensorineural hearing loss (SNHL) of both ears Allergic rhinitis due to allergen Nephrolithiasis Family history of Alzheimer's disease Cardiac murmur hx-as a child "but outgrew it" History of COVID-19 06/2021, drive thru at [place], not hosp; vomiting, headache, body ache, low grade fever, fatigue>resolved within 12-14 days. Hx of spinal stenosis affects both-more on the left Bilateral sensorineural hearing loss R/T EAR INFECTION; no aids Surgical History History of carpal tunnel release left S/P epidural steroid injection Hx of repair of right rotator cuff History of hysteroscopy History of lithotripsy History of hysterectomy History of colonoscopy History of colposcopy Family History Father Hearing loss Hypertension Myocardial infarction Mother Sinusitis Hypertension Mesenteric ischemia Grandfather (Paternal) Colorectal cancer Other No family history of bleeding disorder Denies family history of Ovarian cancer Prostate cancer Breast cancer Social History Smoking Status: Former smoker Tobacco Type: Cigarettes Age Started Using Tobacco: 16; Age Quit Using Tobacco: 41; packs per day: 1; Second Hand Exposure: No; Do You Dip or Chew Tobacco: No; Tobacco Cessation Education Requested by Patient: No Hx Alcohol Use: Yes Alcohol type: beer and hard liquor Alcohol Intake Frequency Comment: several drinks per week Hx Substance Use: No Preferred Language: Pashto Communication Ability: Effective Visual Impairment: No Limitations Hearing Ability: Hard of Hearing Share Dairy Farmer Required: No Beliefs That Will Affect Care: None marital status: Current Living Situation: Spouse current occupational status: employed 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 [employer] Other Information That Helps Us Care for You: No Feels Safe at Home: Yes Safety Concerns: Feels Safe At This Time Childhood Exposure to Second-Hand Smoke: No Dental Care, Regularly: Yes Physical Activity Frequency: Daily Seatbelt Use: always Sunscreen Use: Yes Assistive Devices: None Review of Systems Review of Systems: All systems reviewed & are unremarkable except as noted in Subjective Physical Exam Physical Exam: General: No acute distress Skin: Warm and dry, slightly pallor Head: Normocephalic, atraumatic Eyes: PERRL, conjunctivae clear, sclera non-icteric; wearing glasses ENT: External ear and ear canal without swelling; nose atraumatic; good dentition, tongue normal appearance, pharynx normal Neck: Supple, no LAD Cardio: RRR, no M/G/R, S1 and S2 normal Resp: No respiratory distress, Lungs CTA in all lobes bilaterally, no wheezes, rales, or rhonchi Abdomen: Soft, symmetric, nontender; No masses or hepatosplenomegaly; Bowel sounds normoactive MSK: No deformities, full ROM throughout; pulses palpable and equal; no edema. 1 IV in R antecubital fossa at admission Neuro: Awake, alert; Muscle strength 5/5 bilaterally in UE/LE; Sensation intact bilaterally; CN grossly intact Psych: Appropriate mood and affect; good judgement and insight. Results & Data Results & Data Vital Signs (Past 12 Hours) Vital Signs Temp Pulse Pulse Resp BP BP Pulse Ox 07/24/24 19:09 98 07/24/24 19:09 68 12 133/78 98 07/24/24 18:29 77 07/24/24 17:04 36.4 C L 91 H 18 124/73 98 O2 Del Method 07/24/24 19:09 Room Air 07/24/24 19:09 Room Air 07/24/24 18:29 07/24/24 17:04 Room Air Laboratory Results 07/24/24 07/24/24 07/24/24 19:11 17:32 17:30 WBC 7.71 RBC 3.11 L Hgb 9.9 L Hct 28.3 L MCV 91.0 MCH 31.8 MCHC 35.0 RDW Std Deviation 42.6 RDW Coeff of Sergio 12.8 Plt Count 267 MPV 10.5 Immature Gran % (Auto) 0.3 Neut % (Auto) 63.0 Lymph % (Auto) 28.3 Ocean % (Auto) 6.9 Eos % (Auto) 1.0 Baso % (Auto) 0.5 Neut # (Auto) 4.86 Lymph # (Auto) 2.18 Ocean # (Auto) 0.53 Eos # (Auto) 0.08 Baso # (Auto) 0.04 Immature Gran # (Auto) 0.02 PT 10.4 INR 1.0 APTT 21 PTT Ratio 0.8 Sodium 135 L Potassium 3.5 Chloride 99 Carbon Dioxide 28 Anion Gap 8 BUN 33 H Creatinine 0.74 Est Cr Clr Drug Dosing 62.1 eGFR 89.73 BUN/Creatinine Ratio 44.6 H Glucose 126 H Calcium 10.6 H Total Bilirubin 0.4 AST 20 ALT 10 Alkaline Phosphatase 39 Total Protein 6.7 Albumin 4.3 Globulin 2.4 L Albumin/Globulin Ratio 1.8 Lipase 19 Urine Color Yellow Urine Appearance Clear Urine pH 6.5 Ur Specific Plato 1.011 Urine Protein Negative Urine Glucose (UA) Negative Urine Ketones Negative Urine Blood Negative Urine Nitrite Negative Urine Bilirubin Negative Urine Urobilinogen Negative Ur Leukocyte Esterase Negative Blood Type A Negative Antibody Screen NEGATIVE Diagnostic Findings Abdomen/Pelvis CT 07/24/24 17:07 EXAM: CT abd pelvis IV con only CLINICAL HISTORY: upper abdominal pain, back pain, vomiting TECHNIQUE: A CT scan of the abdomen and pelvis was performed with IV contrast. Bowel loops are opacified by prior administration of oral contrast. 90 ML OPTIRAY 320 intravenous contrast was administered. One of the following dose-reduction techniques was utilized for this exam. Automated exposure control, adjustment of the mA and/or kV according to patient size, and use of iterative reconstruction. DLP 801.4 COMPARISON: Prior dated 03/25/2023 FINDINGS: The liver is normal in size and shape and with regular margins. It measures 16.5 cm.No focal or diffuse parenchymal abnormality. No hepatic mass is identified. The portal vein, intrahepatic biliary radicals, and the bile ducts are normal. Gall bladder appears normal with wall thickness. No radio-opaque calculus or pericholecystic fluid was identified. The common bile duct appears mildly dilated measuring 9.3 mm. No definite stone or mass lesion is noted. A small calcific density noted along the distal end is likely in pancreatic parenchyma. Pancreas appears normal. No peripancreatic fat stranding, pancreatic pseudocyst, or peripancreatic fluid collection. The spleen is normal in size, and no mass is seen. Both adrenal glands are unremarkable. Both kidneys are normal in size, shape, and orientation. No calculi, cyst mass, or hydronephrosis was seen on either side. lobulation is seen bilaterally. Both ureters and urinary bladder appear normal. Few surgical gigi are seen along the bladder base and need to be correlated with the history of the patient. Stable Stomach and small bowel loops are unremarkable. The caecum and ileocecal junction appear normal. The appendix appears unremarkable. Colonic fecal loading noted. Few uncomplicated colonic diverticulae identified. No abnormal gut wall thickening or mass lesion is appreciated. No evidence of bowel obstruction. Pelvic viscera show normal morphology. The uterus and both adnexa appear normal. A small uncomplicated umbilical hernia is noted. No evidence of significant enlargement of the mesenteric or retroperitoneal lymph nodes. Visualized thoracic and lumbar spine show moderate degenerative changes. No lytic or sclerotic lesions in visualized bones. Grade 1 anterolisthesis of L5 over S1 vertebral body is noted. Scoliotic deformity is identified with lumbar convexity towards the right side. Calcified pleural plaques are noted in the right basal lung. Mild pleural effusion/thickening is also noted on the right. An atelectatic band is also noted on the right. No pleural effusion was seen on the left. Mild atherosclerotic changes are noted. IMPRESSION: 1. No acute pathology is noted in the abdomen and pelvis. 2. Stable appearing dilated CBD, no stones or mass lesion appreciated. 3. Stable uncomplicated umbilical hernia. 4. Mild colonic fecal loading. Few uncomplicated colonic diverticulae. 5. Stable appearing right calcified pleura plaques and mild pleural effusion/thickening. 6. No significant interval changes were noted. Electronically signed by Huyen Levin 07-24-2024 8:45 PM Medications Administered NSS 1L Pantoprazole IV Acetaminophen 1g IV ECG Additional Comments: NSR w/ PVC 78bpm, ID [id number], QRS 70, QT/QTc 352/401, PRT 55/0/38 Code Status & VTE Plan Code Status Full Supervising Physician Co-Signing Physician Notes Patient seen and examined, chart reviewed, case discussed with ESTHELA Newman and I agree with the assessment and plan as above. In brief, patient is a 63yo female presenting with n/v, concern for possible UGIB - reports black emesis and black/tarry stools as well. Is taking ASA and Piroxicam. On exam patient is afebrile, HD stable, NAD Skin - no rash HEENT - MMM, Neck supple Heart - +S1/S2, regular, no m/r/g Lungs - CTA Abd - soft, NT/ND Ext - no edema Labs and images reviewed Hgb has decreased to 9.9 from 12.8 from last tested 01/24/24 Elevated BUN as well at 33 Assessment/Plan -Concern for possible UGIB - patient with multiple episodes of nausea/vomiting - concern for hematemesis and melena. Has had drop in H/H. Remains HD stable -Admit to Medical with Telemetry -Maintain 2 large PIVs -Trend H/H - transfuse for ongoing bleeding, symptomatic anemia or Hgb < 7 -Continue Protonix gtt -Hold anti-hypertensives, ASA and Piroxicam -Remainder as above -GI consultation appreciated PG Care Time/CCT Total # of Minutes Spent Total Time Spent with Patient: Total time spent is greater than 50% in coordination of care (as documented) at patient's floor/unit and/or counseling patient: Coding Level of Care Code 93181 INT INP/OBS CARE 3/75MIN Diagnoses GI bleed K92.2 Diabetes mellitus type 2, insulin dependent E11.9; Z79.4
--- NOTE | 2024-07-24 20:46 | CT Scan Report ---
EXAM: CT abd pelvis IV con only CLINICAL HISTORY: upper abdominal pain, back pain, vomiting TECHNIQUE: A CT scan of the abdomen and pelvis was performed with IV contrast. Bowel loops are opacified by prior administration of oral contrast. 90 ML OPTIRAY 320 intravenous contrast was administered. One of the following dose-reduction techniques was utilized for this exam. Automated exposure control, adjustment of the mA and/or kV according to patient size, and use of iterative reconstruction. DLP 801.4 COMPARISON: Prior dated 03/25/2023 FINDINGS: The liver is normal in size and shape and with regular margins. It measures 16.5 cm.No focal or diffuse parenchymal abnormality. No hepatic mass is identified. The portal vein, intrahepatic biliary radicals, and the bile ducts are normal. Gall bladder appears normal with wall thickness. No radio-opaque calculus or pericholecystic fluid was identified. The common bile duct appears mildly dilated measuring 9.3 mm. No definite stone or mass lesion is noted. A small calcific density noted along the distal end is likely in pancreatic parenchyma. Pancreas appears normal. No peripancreatic fat stranding, pancreatic pseudocyst, or peripancreatic fluid collection. The spleen is normal in size, and no mass is seen. Both adrenal glands are unremarkable. Both kidneys are normal in size, shape, and orientation. No calculi, cyst mass, or hydronephrosis was seen on either side. lobulation is seen bilaterally. Both ureters and urinary bladder appear normal. Few surgical gigi are seen along the bladder base and need to be correlated with the history of the patient. Stable Stomach and small bowel loops are unremarkable. The caecum and ileocecal junction appear normal. The appendix appears unremarkable. Colonic fecal loading noted. Few uncomplicated colonic diverticulae identified. No abnormal gut wall thickening or mass lesion is appreciated. No evidence of bowel obstruction. Pelvic viscera show normal morphology. The uterus and both adnexa appear normal. A small uncomplicated umbilical hernia is noted. No evidence of significant enlargement of the mesenteric or retroperitoneal lymph nodes. Visualized thoracic and lumbar spine show moderate degenerative changes. No lytic or sclerotic lesions in visualized bones. Grade 1 anterolisthesis of L5 over S1 vertebral body is noted. Scoliotic deformity is identified with lumbar convexity towards the right side. Calcified pleural plaques are noted in the right basal lung. Mild pleural effusion/thickening is also noted on the right. An atelectatic band is also noted on the right. No pleural effusion was seen on the left. Mild atherosclerotic changes are noted. IMPRESSION: 1. No acute pathology is noted in the abdomen and pelvis. 2. Stable appearing dilated CBD, no stones or mass lesion appreciated. 3. Stable uncomplicated umbilical hernia. 4. Mild colonic fecal loading. Few uncomplicated colonic diverticulae. 5. Stable appearing right calcified pleura plaques and mild pleural effusion/thickening. 6. No significant interval changes were noted. Electronically signed by Huyen Levin 07-24-2024 8:45 PM
--- NOTE | 2024-07-24 21:13 | Emergency Department Note ---
Impression & Plan UGIB (upper gastrointestinal bleed) ED Provider Note CHIEF COMPLAINT: Abdominal pain, vomiting HISTORY OF PRESENT ILLNESS: This 63-year-old female patient past medical history of chronic sinusitis, spinal stenosis, type 2 diabetes, osteoarthritis, hypertension, hypercholesterolemia, lumbar radiculopathy, gastritis presents to the emergency department with stomach upset and vomiting. Patient states 3 days ago she went out for dinner and had a hamburger, promptly vomited several times over the course of the next 36 hours. She denies any high fevers, chest pain or shortness of breath. She does believe she had a fever today. REVIEW OF SYSTEMS: A review of systems was performed with positives and pertinent negatives listed in the history of present illness. 10 systems were reviewed and are otherwise negative. ALLERGIES: see below MEDICATIONS: see below PMH: see below SOCIAL HISTORY: see below DDx: Influenza, COVID, pneumonia, dehydration, electrolyte abnormality, cardiac arrhythmia among others. PHYSICAL EXAM: Vital signs reviewed. General: Well-appearing 63-year-old female, in no significant distress. HEENT: No scleral icterus, PERRLA, neck supple. Atraumatic. Cardiovascular: Regular rate and rhythm, no extra sounds. Pulmonary: Clear to auscultation bilaterally, normal work of breathing. Abdomen: Soft, nontender, nondistended, positive bowel sounds. Musculoskeletal: Atraumatic, no peripheral edema. Rectal: Normal external rectal mucosa, melena that is guaiac positive. Patient's case was discussed with the hospitalist service to evaluate the patient for admission and further management. Neurologic: Patient awake alert and oriented x 3, speech is clear Skin: Warm, dry, no rash EMERGENCY DEPARTMENT COURSE/MDM: This patient was evaluated and appeared to be in no significant distress. IV access was obtained and laboratory work was drawn. The patient was placed on the cardiac nurse practitioner noted to be in a sinus rhythm. Laboratory work reveals hemoglobin of 9.9. Stool guaiac is positive for blood. A Protonix drip and bolus were initiated. The patient did receive 500 mL of IV normal saline solution. Patient was typed and crossed for 2 units of PRBCs. Patient made aware of the plan for admission and agreed. MONITORING: An order for cardiac monitoring was placed and the patient is noted to be in a normal sinus rhythm at 63 beats per minute. RADIOLOGY: CT of the abdomen pelvis: IMPRESSION: 1. No acute pathology is noted in the abdomen and pelvis. 2. Stable appearing dilated CBD, no stones or mass lesion appreciated. 3. Stable uncomplicated umbilical hernia. 4. Mild colonic fecal loading. Few uncomplicated colonic diverticulae. 5. Stable appearing right calcified pleura plaques and mild pleural effusion/thickening. 6. No significant interval changes were noted. EKG: To my interpretation reveals a normal sinus rhythm with PVCs at 78 bpm. QTc of 401. Normal ST segments. DISPOSITION: Admission I have personally spent greater than 40 minutes of critical care time in the direct management of this patient. This includes bedside care, interpretation of diagnostic studies, and testing, discussion with consultants, patient, and family members, and other required patient management activities. This 40 minutes is in excess of all separately billable procedures. Past Med/Surg History Problem List (Updated 07/29/24 @ 15:58 by Christine Sanabria MD) UGIB (upper gastrointestinal bleed) (Acute) Duodenal ulcer GI bleed Jaw pain PND (post-nasal drip) Congestion of nasal sinus Sinusitis Spinal stenosis Vitamin B12 deficiency Vitamin D deficiency Diabetes mellitus type 2, insulin dependent Osteoarthritis (Chronic) Hypertension (Chronic) Hypercholesterolemia (Chronic) Type 2 diabetes mellitus (Chronic) oral meds Insomnia Left lumbar radiculopathy Chronic low back pain with left-sided sciatica Gastritis hx-taskes meds Medical History Recurrent UTI Coronary artery calcification Cervical radiculopathy Bilateral carpal tunnel syndrome Microscopic hematuria Pleural plaque Pulmonary nodules Dysfunction of left eustachian tube Sensorineural hearing loss (SNHL) of both ears Allergic rhinitis due to allergen Nephrolithiasis Family history of Alzheimer's disease Cardiac murmur hx-as a child "but outgrew it" History of COVID-19 06/2021, drive thru at [place], not hosp; vomiting, headache, body ache, low grade fever, fatigue>resolved within 12-14 days. Hx of spinal stenosis affects both-more on the left Bilateral sensorineural hearing loss R/T EAR INFECTION; no aids Surgical History History of carpal tunnel release left S/P epidural steroid injection Hx of repair of right rotator cuff History of hysteroscopy History of lithotripsy History of hysterectomy History of colonoscopy History of colposcopy Family History Father Hearing loss Hypertension Myocardial infarction Mother Sinusitis Hypertension Mesenteric ischemia Grandfather (Paternal) Colorectal cancer Other No family history of bleeding disorder Denies family history of Ovarian cancer Prostate cancer Breast cancer Social History Smoking Status: Former smoker Tobacco Type: Cigarettes Age Started Using Tobacco: 16; Age Quit Using Tobacco: 41; packs per day: 1; Second Hand Exposure: No; Do You Dip or Chew Tobacco: No; Hx Alcohol Use: Yes Alcohol type: beer and hard liquor Alcohol Intake Frequency Comment: several drinks per week Hx Substance Use: No Preferred Language: Japanese Communication Ability: Effective Visual Impairment: No Limitations Hearing Ability: Hard of Hearing Tag Meter Operator Required: No Beliefs That Will Affect Care: None marital status: Current Living Situation: Spouse current occupational status: employed 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 [employer] Feels Safe at Home: Yes Childhood Exposure to Second-Hand Smoke: No Dental Care, Regularly: Yes Physical Activity Frequency: Daily Seatbelt Use: always Sunscreen Use: Yes Assistive Devices: None Allergies Allergies Allergy/AdvReac Type Severity Reaction Status Date / Time Cipro Allergy Unknown HIVES VOMIT Verified 11/01/17 13:35 ciprofloxacin Allergy Unknown HIVES VOMIT Verified 07/25/24 12:48 erythromycin base Allergy Unknown SWELLING Verified 07/25/24 12:48 AND HIVES Sulfa (Sulfonamide Allergy Unknown SWELLING Verified 07/25/24 12:48 Antibiotics) AND HIVES dulaglutide [From Trulicity] AdvReac Intermediate Abdominal Verified 07/25/24 12:48 Pain fosfomycin AdvReac Intermediate Dizziness Verified 07/25/24 12:48 semaglutide [From Rybelsus] AdvReac Intermediate Abdominal Verified 07/25/24 12:48 Pain nitrofurantoin AdvReac Unknown Vomiting Verified 07/25/24 12:48 [From Macrobid] Home Meds Home Medications Medication Instructions Recorded Confirmed lancets 30 gauge (OneTouch Delica #25 ea 02/03/19 07/28/24 Lancets) cranberry fruit 450 mg tablet 0 mg PO QAM ##0 02/20/22 07/28/24 (cranberry) diclofenac sodium 1 % topical gel 2 g topical QID PRN Pain 02/20/22 07/28/24 methocarbamol 500 mg tablet 500 mg PO BID PRN muscle cramping 10/14/22 07/28/24 mecobalamin (vitamin B12) 0 mg PO QAM 02/03/23 07/28/24 aspirin 81 mg tablet,delayed 81 mg PO DAILY 07/21/23 07/28/24 release (Adult Low Dose Aspirin) cholecalciferol (vitamin D3) 25 0 mcg PO DAILY 07/24/24 07/28/24 mcg (1,000 unit) tablet (Vitamin D3) gabapentin 300 mg capsule 300 mg PO QAM 07/24/24 07/28/24 gabapentin 300 mg capsule 600 mg PO HS 07/24/24 07/28/24 insulin glargine U-300 conc 300 26 unit subcut QAM 07/24/24 07/28/24 unit/mL (1.5 mL) subcutaneous pen Previous Rx's Medication Instructions Recorded flash glucose scanning reader #1 ea 07/30/23 (FreeStyle Twin 2 [place]) blood sugar diagnostic (OneTouch #200 ea 11/01/23 Verio test strips) blood-glucose meter (OneTouch #1 ea 11/01/23 Verio Flex Start kit) lancets 33 gauge (OneTouch Delica #200 ea 11/03/23 Plus Lancet) pen needle, diabetic 32 gauge x #400 ea 11/26/23 532" flash glucose sensor (FreeStyle #2 ea 02/07/24 Twin 2 Sensor kit) amlodipine 5 mg tablet 5 mg PO DAILY #90 tabs 06/19/24 chlorthalidone 25 mg tablet 25 mg PO QAM #90 tabs 06/19/24 fluticasone propionate 50 2 spray intranasal QAM PRN 06/19/24 mcg/actuation nasal Congestion #48 grams spray,suspension lisinopril 40 mg tablet 40 mg PO QAM #90 tabs 06/19/24 metformin 500 mg tablet,extended 1,000 mg (2 x 500 mg) PO BID #360 06/19/24 release 24 hr tabs rosuvastatin 20 mg tablet 20 mg PO HS #90 tabs 06/19/24 oxycodone-acetaminophen 5 mg-325 1 - 2 tab PO BID PRN pain #60 tabs 06/30/24 mg tablet insulin lispro 100 unit/mL See Rx Instructions subcut 07/14/24 subcutaneous pen (Admelog SoloStar .COMPLEX #15 mL U-) blood-glucose sensor (FreeStyle #2 ea 07/27/24 Twin 3 Sensor device) ferrous sulfate 325 mg (65 mg 325 mg PO Q OTHER DAY #14 tabs 07/27/24 iron) tablet,delayed release pantoprazole 40 mg tablet,delayed 40 mg PO BID duodenal ulcers #60 07/27/24 release tabs Results & Data (ED) Vital Signs Vital Signs - 24 hr 07/24/24 17:04 07/24/24 18:29 07/24/24 19:09 Temperature 36.4 C L Temperature Source Temporal Artery Scan Pulse Rate 91 H 77 Pulse Rate [Right Finger] 68 Pulse Rhythm [Right Finger] Regular Pulse Strength [Right Finger] Normal Respiratory Rate 18 12 Respiratory Effort / Characteristics Non-Labored Non-Labored Respiratory Depth Normal Normal Respiratory Pattern Regular Blood Pressure 124/73 Blood Pressure [Left Arm] 133/78 Blood Pressure Mean 90 Blood Pressure Mean [Left Arm] 96 Blood Pressure Position [Left Arm] Lying Pulse Oximetry 98 98 Oxygen Delivery Method Room Air Room Air Sepsis Recent Fever Within 48 Hours No Sepsis New/Unexplained Change in Mental Status No Sepsis Action Taken by Nursing No Action Required 07/24/24 19:09 Temperature Temperature Source Pulse Rate Pulse Rate [Right Finger] Pulse Rhythm [Right Finger] Pulse Strength [Right Finger] Respiratory Rate Respiratory Effort / Characteristics Respiratory Depth Respiratory Pattern Blood Pressure Blood Pressure [Left Arm] Blood Pressure Mean Blood Pressure Mean [Left Arm] Blood Pressure Position [Left Arm] Pulse Oximetry 98 Oxygen Delivery Method Room Air Sepsis Recent Fever Within 48 Hours Sepsis New/Unexplained Change in Mental Status Sepsis Action Taken by Skilled Nursing Medications Current Medication List: was personally reviewed by me Laboratory Data Attestation: I reviewed the patient's lab results. 07/27/24 08:26 07/26/24 06:30 Lab Results 07/24/24 07/24/24 07/24/24 Range/Units 17:30 17:32 19:11 WBC 7.71 (4.8-10.8) K/ul RBC 3.11 L (4.20-5.40) M/uL Hgb 9.9 L (12.0-16.0) g/dl Hct 28.3 L (37.0-47.0) % MCV 91.0 (80.0-100.0) fL MCH 31.8 (25.0-34.0) pg MCHC 35.0 (32.0-36.0) g/dL RDW Std Deviation 42.6 (36.4-46.3) fL RDW Coeff of Sergio 12.8 (11.5-14.5) % Plt Count 267 (130-400) K/uL MPV 10.5 (9.4-12.4) fL Immature Gran % (Auto) 0.3 % Neut % (Auto) 63.0 % Lymph % (Auto) 28.3 % [place] % (Auto) 6.9 % Eos % (Auto) 1.0 % Baso % (Auto) 0.5 % Neut # (Auto) 4.86 (1.40-6.50) K/uL Lymph # (Auto) 2.18 (1.20-3.40) K/uL [place] # (Auto) 0.53 (0.11-0.59) K/uL Eos # (Auto) 0.08 (0.00-0.50) K/uL Baso # (Auto) 0.04 (0.00-0.20) K/uL Immature Gran # (Auto) 0.02 (0.01-0.20) K/uL PT 10.4 (9.0-12.0) Seconds INR 1.0 (0.9-1.1) APTT 21 (21-31) Seconds PTT Ratio 0.8 Sodium 135 L (136-145) mmol/L Potassium 3.5 (3.5-5.1) mmol/L Chloride 99 (98-107) mmol/L Carbon Dioxide 28 (21-32) mmol/L Anion Gap 8 (3-11) BUN 33 H (6-23) mg/dl Creatinine 0.74 (0.6-1.2) mg/dl Est Cr Clr Drug Dosing 62.1 ml/min eGFR 89.73 BUN/Creatinine Ratio 44.6 H (10-20) Glucose 126 H (70-99(Fasting)) mg/dl Calcium 10.6 H (8.6-10.3) mg/dl Total Bilirubin 0.4 (0.2-1.0) mg/dl AST 20 (13-39) U/L ALT 10 (7-52) U/L Alkaline Phosphatase 39 (34-104) U/L Total Protein 6.7 (6.0-8.3) gm/dl Albumin 4.3 (3.4-5.0) gm/dl Globulin 2.4 L (2.5-4.0) gm/dl Albumin/Globulin Ratio 1.8 (0.9-2) Lipase 19 (11-82) U/L Urine Color Yellow Urine Appearance Clear (Clear) Urine pH 6.5 (4.5-7.5) Ur Specific Agency 1.011 (1.000-1.030) Urine Protein Negative (Negative) Urine Glucose (UA) Negative (Negative) Urine Ketones Negative (Negative) Urine Blood Negative (Negative) Urine Nitrite Negative (Negative) Urine Bilirubin Negative (Negative) Urine Urobilinogen Negative (Negative) Ur Leukocyte Esterase Negative (Negative) Blood Type A Negative Blood Type Recheck Antibody Screen NEGATIVE 07/24/24 Range/Units 19:36 WBC (4.8-10.8) K/ul RBC (4.20-5.40) M/uL Hgb (12.0-16.0) g/dl Hct (37.0-47.0) % MCV (80.0-100.0) fL MCH (25.0-34.0) pg MCHC (32.0-36.0) g/dL RDW Std Deviation (36.4-46.3) fL RDW Coeff of Sergio (11.5-14.5) % Plt Count (130-400) K/uL MPV (9.4-12.4) fL Immature Gran % (Auto) % Neut % (Auto) % Lymph % (Auto) % [place] % (Auto) % Eos % (Auto) % Baso % (Auto) % Neut # (Auto) (1.40-6.50) K/uL Lymph # (Auto) (1.20-3.40) K/uL [place] # (Auto) (0.11-0.59) K/uL Eos # (Auto) (0.00-0.50) K/uL Baso # (Auto) (0.00-0.20) K/uL Immature Gran # (Auto) (0.01-0.20) K/uL PT (9.0-12.0) Seconds INR (0.9-1.1) APTT (21-31) Seconds PTT Ratio Sodium (136-145) mmol/L Potassium (3.5-5.1) mmol/L Chloride (98-107) mmol/L Carbon Dioxide (21-32) mmol/L Anion Gap (3-11) BUN (6-23) mg/dl Creatinine (0.6-1.2) mg/dl Est Cr Clr Drug Dosing ml/min eGFR BUN/Creatinine Ratio (10-20) Glucose (70-99(Fasting)) mg/dl Calcium (8.6-10.3) mg/dl Total Bilirubin (0.2-1.0) mg/dl AST (13-39) U/L ALT (7-52) U/L Alkaline Phosphatase (34-104) U/L Total Protein (6.0-8.3) gm/dl Albumin (3.4-5.0) gm/dl Globulin (2.5-4.0) gm/dl Albumin/Globulin Ratio (0.9-2) Lipase (11-82) U/L Urine Color Urine Appearance (Clear) Urine pH (4.5-7.5) Ur Specific Agency (1.000-1.030) Urine Protein (Negative) Urine Glucose (UA) (Negative) Urine Ketones (Negative) Urine Blood (Negative) Urine Nitrite (Negative) Urine Bilirubin (Negative) Urine Urobilinogen (Negative) Ur Leukocyte Esterase (Negative) Blood Type Blood Type Recheck A Negative Antibody Screen Administered Medications Discontinued Medications Acetaminophen/Butalbital/Caffeine (Butalbital/Acetamin/Caffeine Tab) 1 tab PO NOW ONE Stop: 07/25/24 10:25 Last Admin: 07/25/24 11:09 Dose: 1 tab Documented By: RIKY Acetaminophen/Butalbital/Caffeine (Butalbital/Acetamin/Caffeine Tab) 1 - 2 tab PO DAILY PRN PRN Reason: Headache Stop: 08/25/24 12:16 Last Admin: 07/27/24 08:59 Dose: 1 tab Documented By: Admin: 07/26/24 12:50 Dose: 1 tab Documented By: ZACHARIAH Amoxicillin/Clavulanate Potassium (Amoxicillin/Clavulanate 875 Mg Tab) 1 tab PO BID MIGUEL A; Protocol Stop: 08/04/24 20:59 Last Admin: 07/27/24 09:00 Dose: 1 tab Documented By: Admin: 07/26/24 20:43 Dose: 1 tab Documented By: Admin: 07/26/24 08:57 Dose: 1 tab Documented By: Admin: 07/25/24 20:47 Dose: 1 tab Documented By: LATISHA Diphenhydramine HCl (Diphenhydramine Capsule 25 Mg Cap) 25 mg PO NOW ONE Stop: 07/25/24 23:03 Last Admin: 07/25/24 23:24 Dose: Not Given Documented By: LATISHA Diphenhydramine HCl (Diphenhydramine Capsule 25 Mg Cap) Confirm Administered Dose 25 mg .ROUTE .STK-MED ONE Stop: 07/25/24 23:19 Last Admin: 07/25/24 23:21 Dose: 25 mg Documented By: LATISHA Diphenhydramine HCl (Diphenhydramine 50 Mg/Ml Vial) 12.5 mg IV NOW STA Stop: 07/26/24 20:13 Last Admin: 07/27/24 00:02 Dose: Not Given Documented By: LATISHA Diphenhydramine HCl (Diphenhydramine Capsule 25 Mg Cap) 25 mg PO NOW ONE Stop: 07/26/24 20:15 Last Admin: 07/26/24 20:42 Dose: 25 mg Documented By: LATISHA Epinephrine HCl (Epinephrine 1.5" Ndl 0.1 Mg/Ml Syr) Confirm Administered Dose 1 mg IV .STK-MED ONE Stop: 07/25/24 14:11 Last Admin: 07/25/24 16:30 Dose: Not Given Documented By: RIKY Gabapentin (Gabapentin 300 Mg Cap) 300 mg PO QAM [facility] Stop: 08/24/24 08:59 Last Admin: 07/27/24 09:01 Dose: 300 mg Documented By: Admin: 07/26/24 08:55 Dose: 300 mg Documented By: Admin: 07/25/24 09:00 Dose: Not Given Documented By: RIKY Gabapentin (Gabapentin 300 Mg Cap) 600 mg PO [facility] Stop: 08/24/24 20:59 Last Admin: 07/26/24 20:42 Dose: 600 mg Documented By: Admin: 07/25/24 20:49 Dose: 600 mg Documented By: MCS Sodium Chloride (Nss) 1,000 mls @ 999 mls/hr IV .Q1H1M ONE Stop: 07/24/24 18:07 Last Infusion: 07/24/24 19:08 Dose: Infused Documented By: Admin: 07/24/24 17:29 Dose: 999 mls/hr Documented By: QGV Acetaminophen (Ofirmev) 1,000 mg in 100 mls @ 400 mls/hr IV NOW STA Stop: 07/24/24 17:21 Last Infusion: 07/24/24 19:08 Dose: Infused Documented By: Admin: 07/24/24 17:29 Dose: 400 mls/hr Documented By: QGV Pantoprazole Sodium 40 mg/ (Dextrose) 100 mls @ 20 mls/hr IV Q5H MIGUEL A Stop: 08/23/24 20:29 Last Admin: 07/27/24 12:22 Dose: 8 mg/hr, 20 mls/hr Documented By: Infusion: 07/27/24 11:15 Dose: Infused Documented By: Infusion: 07/27/24 10:15 Dose: 8 mg/hr, 20 mls/hr Documented By: Infusion: 07/27/24 09:52 Dose: 0 mg/hr, 0 mls/hr Documented By: Admin: 07/27/24 05:52 Dose: 8 mg/hr, 20 mls/hr Documented By: Infusion: 07/27/24 05:52 Dose: Infused Documented By: Admin: 07/27/24 01:09 Dose: 8 mg/hr, 20 mls/hr Documented By: Infusion: 07/27/24 01:01 Dose: Infused Documented By: Admin: 07/26/24 20:01 Dose: 8 mg/hr, 20 mls/hr Documented By: Infusion: 07/26/24 19:38 Dose: Infused Documented By: Admin: 07/26/24 14:38 Dose: 8 mg/hr, 20 mls/hr Documented By: Infusion: 07/26/24 13:57 Dose: Infused Documented By: Admin: 07/26/24 08:57 Dose: 8 mg/hr, 20 mls/hr Documented By: Infusion: 07/26/24 08:57 Dose: Infused Documented By: Admin: 07/26/24 04:20 Dose: 8 mg/hr, 20 mls/hr Documented By: Infusion: 07/26/24 04:20 Dose: Infused Documented By: Admin: 07/25/24 23:21 Dose: 8 mg/hr, 20 mls/hr Documented By: Infusion: 07/25/24 16:59 Dose: Infused Documented By: Infusion: 07/25/24 16:30 Dose: 8 mg/hr, 20 mls/hr Documented By: Admin: 07/25/24 11:49 Dose: 8 mg/hr, 20 mls/hr Documented By: Infusion: 07/25/24 11:36 Dose: Infused Documented By: Admin: 07/25/24 06:36 Dose: 8 mg/hr, 20 mls/hr Documented By: Infusion: 07/25/24 06:33 Dose: Infused Documented By: Admin: 07/25/24 01:48 Dose: 8 mg/hr, 20 mls/hr Documented By: Infusion: 07/25/24 01:47 Dose: Infused Documented By: Admin: 07/24/24 20:37 Dose: 8 mg/hr, 20 mls/hr Documented By: QGV Pantoprazole Sodium 80 mg/ (Dextrose) 120 mls @ 480 mls/hr IV NOW ONE Stop: 07/24/24 20:24 Last Infusion: 07/24/24 20:56 Dose: Infused Documented By: Admin: 07/24/24 20:37 Dose: 480 mls/hr Documented By: QGV Sodium Chloride (Nss) 500 mls @ 15 mls/hr IV .Q24H MIGUEL A Stop: 07/26/24 07:29 Last Infusion: 07/25/24 18:58 Dose: Infused Documented By: Admin: 07/25/24 13:02 Dose: 15 mls/hr Documented By: KAREN Insulin Aspart (Insulin Aspart Per Unit Charge) 0 units SC Q6 MIGUEL A Stop: 08/24/24 00:00 Last Admin: 07/25/24 20:47 Dose: 10 units Documented By: MCS Co-signed By: SHIRA Admin: 07/25/24 18:00 Dose: Not Given Documented By: KKLeilani Admin: 07/25/24 16:28 Dose: Not Given Documented By: Admin: 07/25/24 06:33 Dose: Not Given Documented By: Admin: 07/25/24 01:11 Dose: Not Given Documented By: JASON Insulin Aspart (Insulin Aspart Per Unit Charge) 0 units SC ACHS [facility] Stop: 08/25/24 07:29 Last Admin: 07/27/24 13:15 Dose: 14 units Documented By: AENoemi Co-signed By: NOHEMY Admin: 07/27/24 08:58 Dose: 4 units Documented By: FRANCESCO Co-signed By: ARBEN Admin: 07/26/24 20:45 Dose: 2 units Documented By: LATISHA Co-signed By: MICHELLE Admin: 07/26/24 17:28 Dose: 4 units Documented By: ZACHARIAH Co-signed By: JOYCELYN Admin: 07/26/24 12:48 Dose: 4 units Documented By: ZACHARIAH Co-signed By: SAGAR Admin: 07/26/24 08:54 Dose: 4 units Documented By: ZACHARIAH Co-signed By: BRENDA Insulin Glargine (Lantus Per Unit Charge) 10 units SQ DAILY [facility] Stop: 08/24/24 08:59 Last Admin: 07/25/24 11:08 Dose: 10 units Documented By: RIKY Co-signed By: BRENDA Insulin Glargine (Lantus Per Unit Charge) 0 units SQ [facility]; Protocol Stop: 08/24/24 20:59 Last Admin: 07/25/24 20:46 Dose: 10 units Documented By: LATISHA Co-signed By: SHIRA Insulin Glargine (Lantus Per Unit Charge) 10 units SQ TODAY@1700 ONE Stop: 07/26/24 17:01 Last Admin: 07/26/24 17:28 Dose: 10 units Documented By: ZACHARIAH Co-signed By: JOYCELYN Insulin Glargine (Lantus Per Unit Charge) 15 units SQ DAILY [facility] Stop: 08/26/24 08:59 Last Admin: 07/27/24 08:58 Dose: 15 units Documented By: FRANCESCO Co-signed By: ARBEN Ioversol (Optiray 320 100ml) 90 ml IV ONCE ONE Stop: 07/24/24 18:47 Last Admin: 07/24/24 18:46 Dose: 90 ml Documented By: BRENDA(2) Lidocaine HCl (Lidocaine 2% 2 Ml Vial/Amp(20mg/Ml)) Confirm Administered Dose 4 ml INFIL .STK-MED ONE Stop: 07/25/24 13:40 Last Admin: 07/25/24 16:29 Dose: Not Given Documented By: MACEYS Melatonin (Melatonin 3 Mg Tab) 6 mg PO HS PRN PRN Reason: Sleep Stop: 08/26/24 00:54 Last Admin: 07/27/24 01:08 Dose: 6 mg Documented By: MCS Methocarbamol (Methocarbamol 500 Mg Tablet) 500 mg PO BID PRN PRN Reason: muscle cramping Stop: 08/23/24 22:46 Last Admin: 07/24/24 23:28 Dose: 500 mg Documented By: Ondansetron HCl (Ondansetron Inj 2 Mg/Ml 2 Ml Vial) Confirm Administered Dose 4 mg .ROUTE .STK-MED ONE Stop: 07/25/24 14:11 Last Admin: 07/25/24 16:30 Dose: Not Given Documented By: RIKY Pantoprazole Sodium (Pantoprazole Bolus/Drip) 1 each IV NOW STA Stop: 07/24/24 20:11 Last Admin: 07/24/24 20:37 Dose: Not Given Documented By: QGV Propofol (Propofol Iv Emulsion 10 Mg/Ml 20 Ml Vial) Confirm Administered Dose 200 mg IV .STK-MED ONE Stop: 07/25/24 13:40 Last Admin: 07/25/24 16:30 Dose: Not Given Documented By: RIKY Rosuvastatin Calcium (Rosuvastatin Calcium 20 Mg Tab) 20 mg PO HS MIGUEL A Stop: 08/24/24 20:59 Last Admin: 07/26/24 20:43 Dose: 20 mg Documented By: Admin: 07/25/24 20:49 Dose: 20 mg Documented By: [facility] Vitamin D (Cholecalciferol 25 Mcg (1000 Units) Tab) 25 mcg PO DAILY MIGUEL A Stop: 08/24/24 08:59 Last Admin: 07/27/24 09:01 Dose: 25 mcg Documented By: AENoemi Admin: 07/26/24 08:55 Dose: 25 mcg Documented By: Admin: 07/25/24 09:00 Dose: Not Given Documented By: RIKY Imaging Data Radiologist's Impression: Abdomen/Pelvis CT 07/24/24 17:07 EXAM: CT abd pelvis IV con only CLINICAL HISTORY: upper abdominal pain, back pain, vomiting TECHNIQUE: A CT scan of the abdomen and pelvis was performed with IV contrast. Bowel loops are opacified by prior administration of oral contrast. 90 ML OPTIRAY 320 intravenous contrast was administered. One of the following dose-reduction techniques was utilized for this exam. Automated exposure control, adjustment of the mA and/or kV according to patient size, and use of iterative reconstruction. DLP 801.4 COMPARISON: Prior dated 03/25/2023 FINDINGS: The liver is normal in size and shape and with regular margins. It measures 16.5 cm.No focal or diffuse parenchymal abnormality. No hepatic mass is identified. The portal vein, intrahepatic biliary radicals, and the bile ducts are normal. Gall bladder appears normal with wall thickness. No radio-opaque calculus or pericholecystic fluid was identified. The common bile duct appears mildly dilated measuring 9.3 mm. No definite stone or mass lesion is noted. A small calcific density noted along the distal end is likely in pancreatic parenchyma. Pancreas appears normal. No peripancreatic fat stranding, pancreatic pseudocyst, or peripancreatic fluid collection. The spleen is normal in size, and no mass is seen. Both adrenal glands are unremarkable. Both kidneys are normal in size, shape, and orientation. No calculi, cyst mass, or hydronephrosis was seen on either side. lobulation is seen bilaterally. Both ureters and urinary bladder appear normal. Few surgical gigi are seen along the bladder base and need to be correlated with the history of the patient. Stable Stomach and small bowel loops are unremarkable. The caecum and ileocecal junction appear normal. The appendix appears unremarkable. Colonic fecal loading noted. Few uncomplicated colonic diverticulae identified. No abnormal gut wall thickening or mass lesion is appreciated. No evidence of bowel obstruction. Pelvic viscera show normal morphology. The uterus and both adnexa appear normal. A small uncomplicated umbilical hernia is noted. No evidence of significant enlargement of the mesenteric or retroperitoneal lymph nodes. Visualized thoracic and lumbar spine show moderate degenerative changes. No lytic or sclerotic lesions in visualized bones. Grade 1 anterolisthesis of L5 over S1 vertebral body is noted. Scoliotic deformity is identified with lumbar convexity towards the right side. Calcified pleural plaques are noted in the right basal lung. Mild pleural effusion/thickening is also noted on the right. An atelectatic band is also noted on the right. No pleural effusion was seen on the left. Mild atherosclerotic changes are noted. IMPRESSION: 1. No acute pathology is noted in the abdomen and pelvis. 2. Stable appearing dilated CBD, no stones or mass lesion appreciated. 3. Stable uncomplicated umbilical hernia. 4. Mild colonic fecal loading. Few uncomplicated colonic diverticulae. 5. Stable appearing right calcified pleura plaques and mild pleural effusion/thickening. 6. No significant interval changes were noted. Electronically signed by Huyen Levin 07-24-2024 8:45 PM Discharge Plan Visit Data Chief Complaint: Abdominal Pain Stated Complaint: VOMIT, ABD PAIN, MIDDLE OF BACK, HEADACHE, JAW OCTAVIANO ED Provider: Christine Sanabria Discharge Problem: UGIB (upper gastrointestinal bleed) Patient Disposition: Admitted As Inpatient Discharge Instructions Interventions: ED Discharge Assessment Last Done: 07/24/24 21:40
[2024-07-24] MEDS ORDERED: GLUCAGON FOR INJ 1 MG VIAL SQ PRN (22:47)
[2024-07-24] MEDS ORDERED: DEXTROSE 50% 50 ML SYRINGE IV PRN (22:47)
[2024-07-24] MEDS ORDERED: GLUCOSE 40% GEL 15 GM TUBE PO PRN (22:47)
[2024-07-24] MEDS ORDERED: CARBOHYDRATES FOR HYPOGLYCEMIA PO PRN (22:47)
[2024-07-24] MEDS ORDERED: PHARMACY GLYCEMIC MGMT CONSULT PRN (22:47)
[2024-07-24] MEDS ORDERED: ONDANSETRON INJ 2 MG/ML 2 ML VIAL IV PRN (22:47)
[2024-07-24] MEDS ORDERED: oxyCODONE/ACETAMINOPHEN 5mg/325mg TAB PO PRN (22:47)
[2024-07-24] MEDS ORDERED: GLUCOSE 10 TAB/TUBE PO PRN (22:47)
[2024-07-24] MEDS: METHOCARBAMOL 500 MG TABLET PO PRN (23:28)
[2024-07-25 00:34] LABS: Hematocrit (blood only) 24.5 % (37.0-47.0); Hemoglobin 8.5 g/dl (12.0-16.0)
[2024-07-25] MEDS: INSULIN ASPART PER UNIT CHARGE SC SCH (01:11)
[2024-07-25 05:56] LABS: Hematocrit (blood only) 24.6 % (37.0-47.0); Hemoglobin 8.5 g/dl (12.0-16.0)
[2024-07-25 06:09] LABS: BUN Creatinine Ratio 25.3 (10-20); Calcium 9.4 mg/dl (8.6-10.3); Creatinine Clr Calc Pharmacy 61.6 ml/min; Potassium 3.5 mmol/L (3.5-5.1)
[2024-07-25] MEDS: GABAPENTIN 300 MG CAP PO SCH ×2 (09:00→20:49)
[2024-07-25] MEDS: CHOLECALCIFEROL 25 MCG (1000 UNITS) TAB PO SCH (09:00)
[2024-07-25] MEDS ORDERED: LANTUS PER UNIT CHARGE SQ SCH (09:00)
--- NOTE | 2024-07-25 09:14 | Electrocardiogram Report ---
Test Reason : Blood Pressure : */* mmHG Vent. Rate : 78 BPM Atrial Rate : 78 BPM P-R Int : 138 ms QRS Dur : 70 ms QT Int : 352 ms P-R-T Axes : 55 0 38 degrees QTcB Int : 401 ms Sinus rhythm with occasional Premature ventricular complexes Possible Old Anteroseptal infarct (cited on or before 09-Apr-2023) Abnormal ECG When compared with ECG of 09-Apr-2023 12:29, No significant change Confirmed by Yousif Gan ([id number]) on 07/25/2024 9:13:28 AM Referred By: Maira Samayoa Confirmed By: Yousif Gan
--- NOTE | 2024-07-25 10:50 | Gastrointestinal Consultation ---
Date of Consultation July 25, 2024 Assessment & Plan (1) GI bleed: -Continue to monitor H/H -Continue IV PPI gtt -Keep NPO for EGD today for further evaluation Supervising Physician Co-Signing Physician Notes Pleasant 63-year-old female with chronic back pain. She was on piroxicam for this and Neurontin. On a CT of the chest she was found to have a high calcium score per patient and daughter. She was started on aspirin. She now comes in with report on Wednesday of having increased back pain associated with vomiting of dark material she thought it was food poisoning. When she developed melena and dizziness she understood this may be bleeding and presented for evaluation. She is at a significant drop in her H&H. Elevated BUN and creatinine consistent with upper GI bleeding. Stabilized. I believe the bleeding is stopped. On PPI EGD today for evaluation of source of bleeding gastric ulcer likely. Peptic ulcer disease or duodenal ulcer disease also considered. Biopsy for H. pylori. Endoscopic intervention if stigmata or bleeding Risks and benefits discussed informed consent obtained. History of Present Illness Reason for Consultation: "GI bleed" Attending Physician: Thelma Magaña MD History of Present Illness Patient is a 63 yo female who presented to the ED due to progressive dizziness, WILL, & melena. She notes that she went out to dinner several nights ago and after that she had 4 episodes of dark emesis. She notes that she then began noticing dark stools. She contacted her PCP and was referred to the ED. Her current H/H is 8.5/24.6. BUN 33 on admission, now 19. No further GI bleeding since admission. She is on a PPI drip. She denies a history of GI issues in the past. She does use NSAIDs BID for pain as well as a Baby Aspirin daily. She had a colonoscopy in 2020 and notes a distant history of an EGD, but cannot remember the circumstances for this. No pertinent family history. Last known hemoglobin prior to admission was in January 2024 and was 12.8. Allergies Allergy/AdvReac Type Severity Reaction Status Date / Time Cipro Allergy Unknown HIVES VOMIT Verified 11/01/17 13:35 ciprofloxacin Allergy Unknown HIVES VOMIT Verified 07/25/24 12:48 erythromycin base Allergy Unknown SWELLING Verified 07/25/24 12:48 AND HIVES Sulfa (Sulfonamide Allergy Unknown SWELLING Verified 07/25/24 12:48 Antibiotics) AND HIVES dulaglutide [From Trulicity] AdvReac Intermediate Abdominal Verified 07/25/24 12:48 Pain fosfomycin AdvReac Intermediate Dizziness Verified 07/25/24 12:48 semaglutide [From Rybelsus] AdvReac Intermediate Abdominal Verified 07/25/24 12:48 Pain nitrofurantoin AdvReac Unknown Vomiting Verified 07/25/24 12:48 [From Macrobid] Home Medications Medication Instructions Recorded Confirmed Type lancets 30 gauge (Cutanea Life SciencesTouch Delica #25 ea 02/03/19 07/17/24 History Lancets) cranberry fruit 450 mg tablet 0 mg PO QAM ##0 02/20/22 07/24/24 History (cranberry) diclofenac sodium 1 % topical gel 2 g topical QID PRN Pain 02/20/22 07/24/24 History methocarbamol 500 mg tablet 500 mg PO BID PRN muscle cramping 10/14/22 07/24/24 History mecobalamin (vitamin B12) 0 mg PO QAM 02/03/23 07/24/24 History aspirin 81 mg tablet,delayed 81 mg PO DAILY 07/21/23 07/24/24 History release (Adult Low Dose Aspirin) flash glucose scanning reader #1 ea 07/30/23 07/17/24 Rx (FreeStyle Twin 2 [place]) blood sugar diagnostic (Cutanea Life Sciencesuch #200 ea 11/01/23 07/17/24 Rx Verio test strips) blood-glucose meter (OneTouch #1 ea 11/01/23 07/17/24 Rx Verio Flex Start kit) lancets 33 gauge ([employer] SciencesTouch Delica #200 ea 11/03/23 07/17/24 Rx Plus Lancet) pen needle, diabetic 32 gauge x #400 ea 11/26/23 07/17/24 Rx 5/32" flash glucose sensor (FreeStyle #2 ea 02/07/24 07/17/24 Rx Twin 2 Sensor kit) amlodipine 5 mg tablet 5 mg PO DAILY #90 tabs 06/19/24 07/24/24 Rx chlorthalidone 25 mg tablet 25 mg PO QAM #90 tabs 06/19/24 07/24/24 Rx fluticasone propionate 50 2 spray intranasal QAM PRN 06/19/24 07/24/24 Rx mcg/actuation nasal Congestion #48 grams spray,suspension lisinopril 40 mg tablet 40 mg PO QAM #90 tabs 06/19/24 07/24/24 Rx metformin 500 mg tablet,extended 1,000 mg (2 x 500 mg) PO BID #360 06/19/24 07/24/24 Rx release 24 hr tabs piroxicam 10 mg capsule 10 mg PO BID #180 caps 06/19/24 07/24/24 Rx rosuvastatin 20 mg tablet 20 mg PO HS #90 tabs 06/19/24 07/24/24 Rx oxycodone-acetaminophen 5 mg-325 1 - 2 tab PO BID PRN pain #60 tabs 06/30/24 07/24/24 Rx mg tablet insulin lispro 100 unit/mL See Rx Instructions subcut 07/14/24 07/24/24 Rx subcutaneous pen (Admelog SoloStar .COMPLEX #15 mL U-) amoxicillin 500 mg-potassium 1 tab PO BID 10 days #20 tabs 07/17/24 07/24/24 Rx clavulanate 125 mg tablet (Augmentin) cholecalciferol (vitamin D3) 25 0 mcg PO DAILY 07/24/24 07/24/24 History mcg (1,000 unit) tablet (Vitamin D3) gabapentin 300 mg capsule 300 mg PO QAM 07/24/24 07/24/24 History gabapentin 300 mg capsule 600 mg PO HS 07/24/24 07/24/24 History insulin glargine U-300 conc 300 26 unit subcut QAM 07/24/24 07/24/24 History unit/mL (1.5 mL) subcutaneous pen Patient History Medical History Recurrent UTI Coronary artery calcification Cervical radiculopathy Bilateral carpal tunnel syndrome Microscopic hematuria Pleural plaque Pulmonary nodules Dysfunction of left eustachian tube Sensorineural hearing loss (SNHL) of both ears Allergic rhinitis due to allergen Nephrolithiasis Family history of Alzheimer's disease Cardiac murmur hx-as a child "but outgrew it" History of COVID-19 06/2021, drive thru [place], not hosp; vomiting, headache, body ache, low grade fever, fatigue>resolved within 12-14 days. Hx of spinal stenosis affects both-more on the left Bilateral sensorineural hearing loss R/T EAR INFECTION; no aids Surgical History History of carpal tunnel release left S/P epidural steroid injection Hx of repair of right rotator cuff History of hysteroscopy History of lithotripsy History of hysterectomy History of colonoscopy History of colposcopy Family History Father Hearing loss Hypertension Myocardial infarction Mother Sinusitis Hypertension Mesenteric ischemia Grandfather (Paternal) Colorectal cancer Other No family history of bleeding disorder Denies family history of Ovarian cancer Prostate cancer Breast cancer Social History Smoking Status: Former smoker Tobacco Type: Cigarettes Age Started Using Tobacco: 16; Age Quit Using Tobacco: 41; packs per day: 1; Second Hand Exposure: No; Do You Dip or Chew Tobacco: No; Tobacco Cessation Education Requested by Patient: No Hx Alcohol Use: Yes Alcohol type: beer and hard liquor Alcohol Intake Frequency Comment: several drinks per week Hx Substance Use: No Preferred Language: Slovak Communication Ability: Effective Visual Impairment: No Limitations Hearing Ability: Hard of Hearing Pathology Lab Technician Required: No Beliefs That Will Affect Care: None marital status: Current Living Situation: Spouse current occupational status: employed 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 [employer] Other Information That Helps Us Care for You: No Feels Safe at Home: Yes Safety Concerns: Feels Safe At This Time Childhood Exposure to Second-Hand Smoke: No Dental Care, Regularly: Yes Physical Activity Frequency: Daily Seatbelt Use: always Sunscreen Use: Yes Assistive Devices: None Review of Systems Constitutional: no fever and no chills Respiratory: no cough and no dyspnea Cardiovascular: no chest pain Gastrointestinal: + nausea, + vomiting, + coffee ground em esis and + melena; no abdominal pain Psychiatric: no problem reported Hematologic / Lymphatic: no unexplained weight loss Physical Exam Constitutional: well developed Respiratory: normal respiratory effort Cardiovascular: Rate/Rhythm: regular rate Gastrointestinal (Abdomen): normal bowel sounds, soft, nontender, no hepatosplenomegaly Psychiatric: Orientation: alert and oriented x 3 Results & Data Vital Signs (Past 12 Hours) Vital Signs Temp Pulse Pulse Resp BP Pulse Ox O2 Del Method 07/25/24 07:43 36.8 C 67 18 98/62 L 97 Room Air 07/25/24 07:28 66 07/25/24 03:37 36.7 C 71 20 110/68 97 Room Air 07/24/24 22:54 36.6 C 63 16 110/68 96 Room Air PG Care Time/CCT Total # of Minutes Spent Total Time Spent with Patient: Total time spent is greater than 50% in coordination of care (as documented) at patient's floor/unit and/or counseling patient: Coding Level of Care Code 43602 INT INP/OBS CARE 3/75MIN Diagnoses GI bleed K92.2
[2024-07-25] MEDS: LANTUS PER UNIT CHARGE SQ SCH ×2 (11:08→20:46)
[2024-07-25] MEDS: BUTALBITAL/ACETAMIN/CAFFEINE TAB PO ONE (11:09)
--- NOTE | 2024-07-25 11:49 | Anesthesiology Consultation ---
Date of Service July 25, 2024 Assessment & Plan Chart Review Chart Review: Acceptable Risk for Surgery and Patient NOT seen in Pre Admission Testing Consults Requested none History Surgery Operation Date: 07/25/24 17:10 Proposed Procedures p Esophagogastroduodenoscopy Dr. Kenneth Cooper MD Height/Weight Height: 4 ft 11 in Weight: 65.7 kg Allergies Allergy/AdvReac Type Severity Reaction Status Date / Time Cipro Allergy Unknown HIVES VOMIT Verified 11/01/17 13:35 ciprofloxacin Allergy Unknown HIVES VOMIT Verified 07/24/24 20:18 erythromycin base Allergy Unknown SWELLING Verified 07/24/24 20:18 AND HIVES Sulfa (Sulfonamide Allergy Unknown SWELLING Verified 07/24/24 20:18 Antibiotics) AND HIVES dulaglutide [From Trulicity] AdvReac Intermediate Abdominal Verified 07/24/24 22:58 Pain fosfomycin AdvReac Intermediate Dizziness Verified 07/24/24 20:18 semaglutide [From Rybelsus] AdvReac Intermediate Abdominal Verified 07/24/24 22:58 Pain nitrofurantoin AdvReac Unknown Vomiting Verified 07/24/24 20:18 [From Macrobid] Medications Home Medications Medication Instructions Recorded Confirmed Last Taken lancets 30 gauge ([employer]Touch Delica #25 ea 02/03/19 07/17/24 Unknown Lancets) cranberry fruit 450 mg tablet 0 mg PO QAM ##0 02/20/22 07/24/24 07/24/24 (cranberry) diclofenac sodium 1 % topical gel 2 g topical QID PRN Pain 02/20/22 07/24/24 Unknown methocarbamol 500 mg tablet 500 mg PO BID PRN muscle cramping 10/14/22 07/24/24 Unknown mecobalamin (vitamin B12) 0 mg PO QAM 02/03/23 07/24/24 07/24/24 aspirin 81 mg tablet,delayed 81 mg PO DAILY 07/21/23 07/24/24 07/24/24 release (Adult Low Dose Aspirin) flash glucose scanning reader #1 ea 07/30/23 07/17/24 Unknown ([employer] Twin 2 [place]) blood sugar diagnostic ([employer]Touch #200 ea 11/01/23 07/17/24 Unknown Verio test strips) blood-glucose meter ([employer] #1 ea 11/01/23 07/17/24 Unknown Verio Flex Start kit) lancets 33 gauge (OneTouch Delica #200 ea 11/03/23 07/17/24 Unknown Plus Lancet) pen needle, diabetic 32 gauge x #400 ea 11/26/23 07/17/24 Unknown 32" flash glucose sensor (FreeStyle #2 ea 02/07/24 07/17/24 Unknown Twin 2 Sensor kit) amlodipine 5 mg tablet 5 mg PO DAILY #90 tabs 06/19/24 07/24/24 07/24/24 chlorthalidone 25 mg tablet 25 mg PO QAM #90 tabs 06/19/24 07/24/24 07/24/24 fluticasone propionate 50 2 spray intranasal QAM PRN 06/19/24 07/24/24 Unknown mcg/actuation nasal Congestion #48 grams spray,suspension lisinopril 40 mg tablet 40 mg PO QAM #90 tabs 06/19/24 07/24/24 07/24/24 metformin 500 mg tablet,extended 1,000 mg (2 x 500 mg) PO BID #360 06/19/24 07/24/24 07/24/24 release 24 hr tabs piroxicam 10 mg capsule 10 mg PO BID #180 caps 06/19/24 07/24/24 07/24/24 rosuvastatin 20 mg tablet 20 mg PO HS #90 tabs 06/19/24 07/24/24 07/23/24 oxycodone-acetaminophen 5 mg-325 1 - 2 tab PO BID PRN pain #60 tabs 06/30/24 07/24/24 07/21/24 mg tablet insulin lispro 100 unit/mL See Rx Instructions subcut 07/14/24 07/24/24 07/24/24 08:00 subcutaneous pen (Admelog SoloStar .COMPLEX #15 mL U-) amoxicillin 500 mg-potassium 1 tab PO BID 10 days #20 tabs 07/17/24 07/24/24 07/24/24 08:00 clavulanate 125 mg tablet (Augmentin) cholecalciferol (vitamin D3) 25 0 mcg PO DAILY 07/24/24 07/24/24 07/24/24 mcg (1,000 unit) tablet (Vitamin D3) gabapentin 300 mg capsule 300 mg PO QAM 07/24/24 07/24/24 07/24/24 gabapentin 300 mg capsule 600 mg PO HS 07/24/24 07/24/24 07/23/24 insulin glargine U-300 conc 300 26 unit subcut QAM 07/24/24 07/24/24 07/24/24 unit/mL (1.5 mL) subcutaneous pen Active Medications Generic Name Dose Route Start Last Admin Trade Name Freq PRN Reason Stop Dose Admin Pantoprazole Sodium 40 mg/ 100 mls @ 20 mls/hr 07/24/24 20:30 07/25/24 11:49 Dextrose IV 08/23/24 20:29 8 mg/hr Q5H MIGUEL A 20 mls/hr Administration 8 MG/HR Insulin Aspart 0 units 07/25/24 00:00 07/25/24 06:33 Insulin Aspart Per Unit Charge SC 08/24/24 00:00 Not Given Q6 MIGUEL A Insulin Glargine 10 units 07/25/24 09:00 07/25/24 11:08 Lantus Per Unit Charge SQ 08/24/24 08:59 10 units DAILY MIGUEL A Administration Methocarbamol 500 mg 07/24/24 22:47 07/24/24 23:28 Methocarbamol 500 Mg Tablet PO 08/23/24 22:46 500 mg BID PRN Administration muscle cramping Past Medical History Medical History Recurrent UTI Coronary artery calcification Cervical radiculopathy Bilateral carpal tunnel syndrome Microscopic hematuria Pleural plaque Pulmonary nodules Dysfunction of left eustachian tube Sensorineural hearing loss (SNHL) of both ears Allergic rhinitis due to allergen Nephrolithiasis Family history of Alzheimer's disease Cardiac murmur hx-as a child "but outgrew it" History of COVID-19 06/2021, drive thru [place], [place] hosp; vomiting, headache, body ache, low grade fever, fatigue>resolved within 12-14 days. Hx of spinal stenosis affects both-more on the left Bilateral sensorineural hearing loss R/T EAR INFECTION; no aids Past Family History Family History Father Hearing loss Hypertension Myocardial infarction Mother Sinusitis Hypertension Mesenteric ischemia Grandfather (Paternal) Colorectal cancer Other No family history of bleeding disorder Denies family history of Ovarian cancer Prostate cancer Breast cancer Past Surgical History Surgical History History of carpal tunnel release left S/P epidural steroid injection Hx of repair of right rotator cuff History of hysteroscopy History of lithotripsy History of hysterectomy History of colonoscopy History of colposcopy Social History Smoking Status: Former smoker tobacco type: cigarettes Do You Dip or Chew Tobacco: No Hx Alcohol Use: Yes Alcohol type: beer and hard liquor alcohol intake frequency: holidays/special occasions only Hx Substance Use: No substance use type: does not use Physical Exam Vital Signs Last Vital Signs Temp 36.8 C 07/25/24 11:32 Pulse 72 07/25/24 11:32 Resp 18 07/25/24 11:32 BP 101/63 07/25/24 11:32 Pulse Ox 97 07/25/24 11:32 O2 Del Method Room Air 07/25/24 11:32 Testing Laboratory Results 07/25/24 05:38 07/25/24 05:38 PT 10.4 Seconds (9.0-12.0) 07/24/24 17:30 INR 1.0 (0.9-1.1) 07/24/24 17:30 APTT 21 Seconds (21-31) 07/24/24 17:30 Urine Color Yellow 07/24/24 19:11 Urine Appearance Clear (Clear) 07/24/24 19:11 Urine pH 6.5 (4.5-7.5) 07/24/24 19:11 Ur Specific [place] 1.011 (1.000-1.030) 07/24/24 19:11 Urine Protein Negative (Negative) 07/24/24 19:11 Urine Glucose (UA) Negative (Negative) 07/24/24 19:11 Urine Ketones Negative (Negative) 07/24/24 19:11 Urine Nitrite Negative (Negative) 07/24/24 19:11 Ur Leukocyte Esterase Negative (Negative) 07/24/24 19:11 Blood Type A Negative 07/24/24 17:32 Antibody Screen NEGATIVE 07/24/24 17:32 07/25/24 07/25/24 05:36 01:08 POC Glucose 118 H 130 H Electrocardiogram Date: 07/24/24 Sinus rhythm with occasional Premature ventricular complexes Possible Old Anteroseptal infarct (cited on or before 09-Apr-2023) Abnormal ECG When compared with ECG of 09-Apr-2023 12:29, No significant change Confirmed by Yousif Gan ([id number]) on 07/25/2024 9:13:28 AM Stress Test Date: 05/03/23 Type: DSE Findings: + WNL Resting EF: 60 [address] LV Function: normal
[2024-07-25] MEDS: SODIUM CHLORIDE 0.9% 500 ML IV SCH (13:02)
--- NOTE | 2024-07-25 14:12 | Communication Note ---
Date of Service: July 25, 2024 EGD note Multiple small superficial gastric ulcerations in the antrum. Greater 8 mm ulcer posterior bulb active bleeding. Visible vessel. Injected 1 in 10,000 epinephrine anticoagulated with BiCap coagulation with hemostasis. Second ulcer in the duodenal sweep without bleeding or visible vessel. Biopsy and antrum for H. pylori. Clears. IV Protonix.
--- NOTE | 2024-07-25 14:22 | GI REPORT ---
[facility] Patient: NALLELY JEAN BAPTISTE : 1960 Sex at : Female Age: 63 Years Procedure: Upper GI endoscopy Date: 07/25/2024 Attending Physician: Chris Cooper MD Referring MD: Maira Daugherty MD Indications: - Suspected upper gastrointestinal bleeding Medications: - Monitored Anesthesia Care Complications: - No immediate complications. Estimated Blood Loss: - Estimated blood loss was minimal. Procedure: - The egd scope was introduced through the mouth and advanced to the second part of the duodenum. - The upper GI endoscopy was accomplished without difficulty. - The patient tolerated the procedure well. Findings: - A small hiatal hernia was present. - Few non-bleeding superficial and cratered gastric ulcers with no stigmata of bleeding were found in the gastric antrum. The largest lesion was 4 mm in largest dimension. Biopsies were taken with a cold forceps for histology. Estimated blood loss was minimal. - One spurting cratered duodenal ulcer with a visible vessel was found in the duodenal bulb. The lesion was 8 mm in largest dimension. Injected with 2-1/2 cc of 1 10,000 epinephrine. Visible vessel and cauterized with gold probe. Hemostasis present post vessel retracted. - One non-bleeding cratered duodenal ulcer with no stigmata of bleeding was found in the second portion of the duodenum. The lesion was 12 mm in largest dimension. Impression: - Small hiatal hernia. - Non-bleeding gastric ulcers with no stigmata of bleeding. Biopsied. - Spurting duodenal ulcer with a visible vessel. - Injected with 2-1/2 cc of 1 10,000 epinephrine. Visible vessel and cauterized with gold probe. Hemostasis present post vessel retracted. - Non-bleeding duodenal ulcer with no stigmata of bleeding. Recommendation: - Await pathology results. - Treat H. pylori if present - IV PPI therapy 24 to 48 hours - Clear liquids for now. - Patient will need to avoid the combination of NSAIDs and aspirin. - If either required long-term PPI ulcer prophylaxis recommend Procedure Code(s): - 73500, Esophagogastroduodenoscopy, flexible, transoral; with biopsy, single or multiple Diagnosis Code(s): - K44.9, Diaphragmatic hernia without obstruction or gangrene - K25.9, Gastric ulcer, unspecified as acute or chronic, without hemorrhage or perforation - K26.4, Chronic or unspecified duodenal ulcer with hemorrhage - K26.9, Duodenal ulcer, unspecified as acute or chronic, without hemorrhage or perforation CPT(R) - 2023 copyright [employer]. All Rights Reserved. The CPT codes, CCI edits and ICD codes generated are intended as suggestions and were generated based on input data. These codes are preliminary and upon custom harvester review may be revised to meet current compliance and payer requirements. The provider is responsible for the final determination of appropriate codes, and modifiers. Chris Cooper MD This document has been electronically signed. Note Initiated:07/25/2024 Note Completed:07/25/2024 2:21 PM \\[id number]
--- NOTE | 2024-07-25 15:35 | Pharmacy Report ---
Pharmacy Glycemic Short Note 2 - Date of Service July 25, 2024 - Glycemic Short BSG Results (Last 24 hours): 07/24/24 07/25/24 07/25/24 17:30 01:08 05:36 Glucose 126 H POC Glucose 130 H 118 H 07/25/24 05:38 Glucose 109 H POC Glucose OUTPATIENT ANTIDIABETIC REGIMEN: * Toujeo 26 units SQ QAM * Humalog 4 units SQ QDB, QDL * Humalog 5 units SQ QDD * HbA1c 7.6% (06/13/24) ASSESSMENT: * Julia is a 63 YOF admitted for GI bleed with a history of T2DM. Pharmacy has been consulted to assist with glycemic management while inpatient. * Fasting BSG this AM within goal range, will give ~50% of home basal while NPO for EGD * Unable to asses NovoLog at this time as none has been administered, was initiated at a weight based stress of 2, continue for now. PLAN FOR INPATIENT GLYCEMIC CONTROL: * Hold outpatient oral diabetes medications * Basal insulin * Lantus 10 units SQ daily * Lantus 0-10 units SQ HS based on BSGs (see eMAR for additional details) * Bolus insulin * NovoLog per scale ACHS or Q6hrs while NPO * Goal Range: Low 110 mg/dL - High 140 mg/dL * Correction Factor: 35 mg/dL/unit * Nutritional / Prandial insulin per carb ratio of 1 unit per 12 grams CHO consumed
[2024-07-25] MEDS: LIDOCAINE 2% 2 ML VIAL/AMP(20MG/ML) INFIL ONE (16:29)
[2024-07-25] MEDS: PROPOFOL IV EMULSION 10 MG/ML 20 ML VIAL IV ONE (16:30)
[2024-07-25] MEDS: ONDANSETRON INJ 2 MG/ML 2 ML VIAL ONE (16:30)
--- NOTE | 2024-07-25 16:41 | Hospitalist Progress Note ---
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 States that her vomit was dark brown/black in color and was described as thick in consistency. also reported a black stool, epigastric pain. Takes Piroxicam twice daily x months, Recent addition of 81 mg aspirin by cardiology. CTAP w/ no acute findings. Received 1L NSS and pantoprazole in ED. # acute upper GI bleed - likely NSAID induced gastric ulcer/gastritis, Tanisha-Hannon tear is within the differential diagnosis as well # acute blood loss anemia hemoglobin dropped yesterday from 9.9-8.5 likely dilutional overnight remains stable at 8.5, vital signs normal - continue pantoprazole drip - consulted gastroenterology, EGD planned for late today - disposition depending on risk stratification from EGD - CBC in a.m., iron supplementation on discharge #DMT2, insulin dependent H/o DMT2, started on insulin ~ 1 year ago. At home regimen glargine 26U qAM, lispro 4U w/ breakfast and 5U with dinner, metformin. - Hold po meds - Most recent A1C 05/2024 @ 7.6% - BSG ACHS once eating, q6h while npo - Pharm glycemic management consult placed, appreciate assistance- Adjust regimen as needed #Sinusitis- started on Augmentin outpatient, symptoms overall controlled; will continue Augmentin #Chronic pain, back- Gabapentin, oxycodone-acetaminophen #HTN- Chlorthalidone, lisinopril, amlodipine - held at admission, currently normotensive #HLD- Rosuvastatin VTE Prophylaxis: SCDs Admission and Anticipated Discharge Date Admission Date: July 24, 2024 Subjective Recent nsaids and ASA epigastric pain resolved previously she had some sharp, transient RLQ pains, appendix was normal appearing on CT no emesis or stools overnight Physical Exam 2 Physical Exam: PHYSICAL EXAMINATION Last 24h vital signs reviewed, see documentation in flowsheet General: comfortable appearing, no distress HEENT: Normocephalic, atraumatic, pupils round and equal, sclerae anicteric, no conjunctival injection, moist mucus membranes Lungs: Normal respiratory effort. Clear to auscultation bilaterally. No RRW Heart: Regular rate and rhythm, no murmurs. No JVD Abdomen: Soft, nontender, nondistended. Bowel sounds present. no epigastric or right lower quadrant tenderness specifically Extremities: Warm, dry, well-perfused. No extremity edema. Neuro: Alert and oriented x 4, face symmetric, moves 4 extremities well Psych: Normal affect and behavior Results & Data Results & Data Vital Signs (Past 12 Hours) Vital Signs Temp Pulse Pulse Resp BP Pulse Ox O2 Del Method 07/25/24 14:50 66 16 134/65 99 Room Air 07/25/24 14:35 75 15 142/58 H 98 Room Air 07/25/24 14:20 85 18 145/80 H 98 Room Air 07/25/24 12:50 98.2 F 65 16 123/67 97 Room Air 07/25/24 11:32 98.2 F 72 18 101/63 97 Room Air 07/25/24 07:43 98.2 F 67 18 98/62 L 97 Room Air 07/25/24 07:28 66 Laboratory Results 07/25/24 05:38 07/25/24 05:38 PG Care Time/CCT Total # of Minutes Spent Total Time Spent with Patient: Total time spent is greater than 50% in coordination of care (as documented) at patient's floor/unit and/or counseling patient: Coding Level of Care Code 98464 SUB INP/OBS CARE 3/50MIN Diagnoses GI bleed K92.2 Diabetes mellitus type 2, insulin dependent E11.9; Z79.4
--- NOTE | 2024-07-25 16:52 | Anesthesiology Progress Note ---
Date of Service July 25, 2024 Anesthesia Post Procedure Vital Signs Vital Signs: Temp Pulse Pulse Resp BP BP Pulse Ox 07/25/24 14:50 66 16 134/65 99 07/25/24 14:35 75 15 142/58 H 98 07/25/24 14:20 85 18 145/80 H 98 07/25/24 12:50 36.8 C 65 16 123/67 97 07/25/24 11:32 36.8 C 72 18 101/63 97 07/25/24 07:43 36.8 C 67 18 98/62 L 97 07/25/24 07:28 66 07/25/24 03:37 36.7 C 71 20 110/68 97 07/24/24 22:54 36.6 C 63 16 110/68 96 07/24/24 22:42 81 07/24/24 21:26 82 18 144/69 H 98 07/24/24 19:09 98 07/24/24 19:09 68 12 133/78 98 07/24/24 18:29 77 07/24/24 17:04 36.4 C L 91 H 18 124/73 98 O2 Del Method 07/25/24 14:50 Room Air 07/25/24 14:35 Room Air 07/25/24 14:20 Room Air 07/25/24 12:50 Room Air 07/25/24 11:32 Room Air 07/25/24 07:43 Room Air 07/25/24 07:28 07/25/24 03:37 Room Air 07/24/24 22:54 Room Air 07/24/24 22:42 07/24/24 21:26 Room Air 07/24/24 19:09 Room Air 07/24/24 19:09 Room Air 07/24/24 18:29 07/24/24 17:04 Room Air Pain Intensity Head: Pain Intensity: 5 Transfer of Care Handoff Completed per policy Notes Mental Status: alert / awake / arousable and participated in evaluation Patient Amnestic to Procedure: Yes Nausea / Vomiting: adequately controlled Pain: adequately controlled Airway Patency, RR, SpO2: stable & adequate BP & HR: stable & adequate Hydration State: stable & adequate Anesthetic Complications: no major complications apparent and Pt Satisfied with anesthetic care
[2024-07-25 19:48] LABS: Hematocrit (blood only) 27.9 % (37.0-47.0); Hemoglobin 9.4 g/dl (12.0-16.0)
[2024-07-25] MEDS: AMOXICILLIN/CLAVULANATE 875 MG TAB PO SCH (20:47)
[2024-07-25] MEDS: ROSUVASTATIN CALCIUM 20 MG TAB PO SCH (20:49)
[2024-07-25 21:55] LABS: Calcium 8.8 mg/dl (8.6-10.3); Creatinine Clr Calc Pharmacy 57.1 ml/min; Potassium 3.6 mmol/L (3.5-5.1)
[2024-07-25] MEDS: diphenhydrAMINE Capsule 25 MG CAP ONE (23:21)
[2024-07-25] MEDS: diphenhydrAMINE Capsule 25 MG CAP PO ONE (23:24)
[2024-07-25] MEDS ORDERED: Nursing to Pharmacy Communication SCH (23:45)
[2024-07-26 01:02] LABS: Hematocrit (blood only) 24.4 % (37.0-47.0); Hemoglobin 8.5 g/dl (12.0-16.0)
[2024-07-26 07:09] LABS: Hemoglobin 8.8 g/dl (12.0-16.0); Mean Corpuscular Hemoglobin 30.8 pg (25.0-34.0); Mean Corpuscular Hgb Conc 33.8 g/dL (32.0-36.0); Mean Corpuscular Volume 90.9 fL (80.0-100.0); Mean Platelet Volume 10.8 fL (9.4-12.4); Platelet Count 214 K/uL (130-400); RDW Coefficient of Variation 13.2 % (11.5-14.5); RDW Standard Deviation 43.7 fL (36.4-46.3); Red Blood Count 2.86 M/uL (4.20-5.40); White Blood Count 5.18 K/ul (4.8-10.8)
[2024-07-26 07:37] LABS: BUN Creatinine Ratio 17.7 (10-20); Calcium 9.2 mg/dl (8.6-10.3); Creatinine Clr Calc Pharmacy 58.9 ml/min; Potassium 3.6 mmol/L (3.5-5.1)
[2024-07-26] MEDS: INSULIN ASPART PER UNIT CHARGE SC SCH (08:54)
--- NOTE | 2024-07-26 11:29 | Gastroenterology Progress Note ---
Date of Service July 26, 2024 Assessment & Plan (1) Duodenal ulcer: Plan: -Continue IV Protonix drip for 48 hours. Will plan for discharge on Protonix 40 mg BID. -Needs to avoid NSAIDs moving forward. -Continue to monitor H/H and for signs of active bleeding. -On Clear liquids for now, hopefully to advance this evening if able. Will update diet order when appropriate. Admission and Anticipated Discharge Date Admission Date: July 24, 2024 Supervising Physician Co-Signing Physician Notes Post day 1 endoscopic intervention for bleeding duodenal ulcer. Hemoglobin stable. Can advance to full fluids. Anticipate discharge tomorrow in the absence of rebleeding. Patient should avoid NSAIDs going forward. She should be treated long-term with Protonix 40 mg/day. Subjective Patient is a 63 yo female who underwent an EGD on 07/25/24 for melena and anemia. She was found to have gastric ulcers as well as a bleeding duodenal ulcer that was treated and a non-bleeding duodenal ulcer as well. She notes a headache today but no melena, hematochezia, or other GI symptoms today. She continues on a PPI drip. Review of Systems Constitutional: no fever and no chills Gastrointestinal: no abdominal pain, no blood in stools and no melena Psychiatric: no problem reported Physical Exam Constitutional: well developed Respiratory: normal respiratory effort Cardiovascular: Rate/Rhythm: regular rate Gastrointestinal (Abdomen): normal bowel sounds, soft, nontender, no hepatosplenomegaly Psychiatric: Orientation: alert and oriented x 3 Results & Data Results & Data Vital Signs (Past 12 Hours) Vital Signs Temp Pulse Pulse Resp BP Pulse Ox O2 Del Method 07/26/24 07:24 36.5 C 68 18 104/65 97 Room Air 07/26/24 07:00 60 07/26/24 03:59 36.4 C L 67 20 96/60 L 96 Room Air 07/25/24 23:29 36.8 C 65 20 103/64 95 Room Air PG Care Time/CCT Total # of Minutes Spent Total Time Spent with Patient: Total time spent is greater than 50% in coordination of care (as documented) at patient's floor/unit and/or counseling patient: Coding Level of Care Code 29083 SUB INP/OBS CARE 3/50MIN Diagnoses Duodenal ulcer K26.9
[2024-07-26] MEDS: BUTALBITAL/ACETAMIN/CAFFEINE TAB PO PRN (12:50)
--- NOTE | 2024-07-26 14:09 | Pharmacy Report ---
Pharmacy Glycemic Short Note 2 - Date of Service July 26, 2024 - Glycemic Short BSG Results (Last 24 hours): 07/25/24 07/25/24 07/25/24 17:41 20:21 21:23 Glucose 299 H POC Glucose 108 H 384 H* 07/25/24 07/26/24 07/26/24 21:43 02:36 03:41 Glucose POC Glucose 289 H 60 L* 181 H 07/26/24 07/26/24 07/26/24 06:30 08:17 11:54 Glucose 143 H POC Glucose 147 H 202 H OUTPATIENT ANTIDIABETIC REGIMEN: * Toujeo 26 units SQ QAM * Humalog 4 units SQ QDB, QDL * Humalog 5 units SQ QDD * HbA1c 7.6% (06/13/24) ASSESSMENT: 07/26 * Patient received total of 30 units of insulin yesterday, of which 20 units were basal insulin * BSGs low overnight ~60 mg/dL - treated per hypoglycemia protocol. Patient with blood sugar >300 at HS last evening, unclear if potentially patient eating when this was taken and value was overcorrected with novolog or if basal contributed to value. * Lunch BSGs now trending upward, will start 10 units basal once daily for now with dinner. Will move closer to AM time tomorrow which is similar to when patient takes outpatient 07/25 * Julia is a 63 YOF admitted for GI bleed with a history of T2DM. Pharmacy has been consulted to assist with glycemic management while inpatient. * Fasting BSG this AM within goal range, will give ~50% of home basal while NPO for EGD * Unable to asses NovoLog at this time as none has been administered, was initiated at a weight based stress of 2, continue for now. PLAN FOR INPATIENT GLYCEMIC CONTROL: * Hold outpatient oral diabetes medications * Basal insulin * Lantus 10 units SQ daily * Bolus insulin * NovoLog per scale ACHS or Q6hrs while NPO * Goal Range: Low 110 mg/dL - High 140 mg/dL * Correction Factor: 30 mg/dL/unit * Nutritional / Prandial insulin per carb ratio of 1 unit per 11 grams CHO consumed
--- NOTE | 2024-07-26 17:15 | Hospitalist Progress Note ---
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 States that her vomit was dark brown/black in color and was described as thick in consistency. also reported a black stool, epigastric pain. Takes Piroxicam twice daily x months, Recent addition of 81 mg aspirin by cardiology. CTAP w/ no acute findings. Received 1L NSS and pantoprazole in ED. # acute upper GI bleed - likely NSAID induced- multiple gastric and duodenal ulcerations on EGD 07/26, including deep actively bleeding duodenal ulcer with visible vessel, injected with epinephrine and cauterized # acute blood loss anemia hemoglobin remains stable today at 8.8, vital signs stable, no further melena or hematemesis - continue pantoprazole drip at least through tomorrow morning, then twice daily PPI - monitor hemoglobin and vital signs - diet advanced to full liquid per GI - stop NSAIDs - ferrous sulfate every 48 hours on discharge for presumptive iron deficiency - follow-up biopsy for H. pylori #DMT2, insulin dependent H/o DMT2, started on insulin ~ 1 year ago. At home regimen glargine 26U qAM, lispro 4U w/ breakfast and 5U with dinner, metformin. - Hold po meds - Most recent A1C 05/2024 @ 7.6% - [facility] [place] [facility]S - had hyperglycemia last night treated with 10 units of aspart and 10 units of glargine subsequently hypoglycemic. control will be easier now that she is moving off of n.p.o./clear liquid diet - Pharm glycemic management consult placed, appreciate assistance- Adjust regimen as needed #Sinusitis- started on Augmentin outpatient, symptoms overall controlled; continue Augmentin #Chronic pain, back- Gabapentin, oxycodone-acetaminophen #HTN- Chlorthalidone, lisinopril, amlodipine - held at admission, currently normotensive #HLD- Rosuvastatin VTE Prophylaxis: SCDs Admission and Anticipated Discharge Date Admission Date: July 24, 2024 Subjective no abdominal pain, feels hungry, no further emesis or melena has a.m. headaches likely caffeine withdrawal Physical Exam 2 Physical Exam: PHYSICAL EXAMINATION Last 24h vital signs reviewed, see documentation in flowsheet General: comfortable appearing, no distress, awake sitting up in bed HEENT: Normocephalic, atraumatic, pupils round and equal, sclerae anicteric, no conjunctival injection, moist mucus membranes Lungs: Normal respiratory effort. Clear to auscultation bilaterally. No RRW Heart: Regular rate and rhythm, no murmurs. No JVD Abdomen: S/NT/ND Bowel sounds present. Extremities: Warm, dry, well-perfused. No extremity edema. Neuro: Alert and oriented x 4, face symmetric, moves 4 extremities well Psych: Normal affect and behavior Results & Data Results & Data Vital Signs (Past 12 Hours) Vital Signs Temp Pulse Pulse Resp BP Pulse Ox O2 Del Method 07/26/24 16:00 67 07/26/24 15:04 97.9 F 70 18 148/72 H 97 Room Air 07/26/24 11:30 98.2 F 59 L 18 103/68 96 Room Air 07/26/24 07:24 97.7 F 68 18 104/65 97 Room Air 07/26/24 07:00 60 Laboratory Results 07/26/24 06:30 07/26/24 06:30 PG Care Time/CCT Total # of Minutes Spent Total Time Spent with Patient: Total time spent is greater than 50% in coordination of care (as documented) at patient's floor/unit and/or counseling patient: Coding Level of Care Code 67496 SUB INP/OBS CARE 2/35MIN Diagnoses GI bleed K92.2 Diabetes mellitus type 2, insulin dependent E11.9; Z79.4
[2024-07-26] MEDS: LANTUS PER UNIT CHARGE SQ ONE (17:28)
[2024-07-26] MEDS: diphenhydrAMINE Capsule 25 MG CAP PO ONE (20:42)
[2024-07-27] MEDS: diphenhydrAMINE 50 MG/ML VIAL IV STA (00:02)
[2024-07-27] MEDS: MELATONIN 3 MG TAB PO PRN (01:08)
[2024-07-27 07:40] VITALS: PULSE 69; RESP 18; O2SAT 97
[2024-07-27 08:58] LABS: Hematocrit (blood only) 28.7 % (37.0-47.0); Hemoglobin 9.7 g/dl (12.0-16.0); Mean Corpuscular Hemoglobin 30.7 pg (25.0-34.0); Mean Corpuscular Hgb Conc 33.8 g/dL (32.0-36.0); Mean Corpuscular Volume 90.8 fL (80.0-100.0); Mean Platelet Volume 10.8 fL (9.4-12.4); Platelet Count 272 K/uL (130-400); RDW Coefficient of Variation 12.9 % (11.5-14.5); RDW Standard Deviation 42.6 fL (36.4-46.3); Red Blood Count 3.16 M/uL (4.20-5.40); White Blood Count 4.59 K/ul (4.8-10.8)
[2024-07-27] MEDS: LANTUS PER UNIT CHARGE SQ SCH (08:58)
--- NOTE | 2024-07-27 10:08 | Pharmacy Report ---
Pharmacy Glycemic Short Note 2 - Date of Service July 27, 2024 - Glycemic Short BSG Results (Last 24 hours): 07/26/24 07/26/24 07/26/24 11:54 16:54 20:20 POC Glucose 202 H 126 H 182 H 07/27/24 08:12 POC Glucose 195 H OUTPATIENT ANTIDIABETIC REGIMEN: * Toujeo 26 units SQ QAM * Humalog 4 units SQ QDB, QDL * Humalog 5 units SQ QDD * HbA1c 7.6% (06/13/24) ASSESSMENT: 07/27 * Patient received total of 24 units of insulin yesterday, of which 10 units were basal insulin * Fasting BSG 195 mg/dL - will titrate up basal slightly to 15 units once daily. PO intake now improving. 07/26 * Patient received total of 30 units of insulin yesterday, of which 20 units were basal insulin * BSGs low overnight ~60 mg/dL - treated per hypoglycemia protocol. Patient with blood sugar >300 at HS last evening, unclear if potentially patient eating when this was taken and value was overcorrected with novolog or if basal contributed to value. * Lunch BSGs now trending upward, will start 10 units basal once daily for now with dinner. Will move closer to AM time tomorrow which is similar to when patient takes outpatient 07/25 * Julia is a 63 YOF admitted for GI bleed with a history of T2DM. Pharmacy has been consulted to assist with glycemic management while inpatient. * Fasting BSG this AM within goal range, will give ~50% of home basal while NPO for EGD * Unable to asses NovoLog at this time as none has been administered, was initiated at a weight based stress of 2, continue for now. PLAN FOR INPATIENT GLYCEMIC CONTROL: * Hold outpatient oral diabetes medications * Basal insulin * Lantus 15 units SQ daily * Bolus insulin * NovoLog per scale ACHS or Q6hrs while NPO * Goal Range: Low 110 mg/dL - High 140 mg/dL * Correction Factor: 30 mg/dL/unit * Nutritional / Prandial insulin per carb ratio of 1 unit per 11 grams CHO consumed
[2024-07-27 11:21] VITALS: BP 125/68; TEMP 98.2
--- NOTE | 2024-07-27 11:26 | Gastroenterology Progress Note ---
Date of Service July 27, 2024 Assessment & Plan (1) Duodenal ulcer: Plan: -Avoid NSAIDs -Protonix 40 mg BID on d/c -Will need outpatient follow-up in GI clinic Admission and Anticipated Discharge Date Admission Date: July 24, 2024 Supervising Physician Co-Signing Physician Notes Patient with bleeding duodenal ulcer. Hemoglobin stable. No signs of active bleeding for discharge. Outpatient follow-up. Avoid NSAIDs. PPI twice daily for 2 to 4 weeks. Then daily. Recommend long-term PPI prophylaxis. H. pylori biopsies are negative. Subjective Patient is a 63 yo female with gastric & duodenal ulcers. She notes some dark stool, but H/H has increased to 9.7/28.7. She has been on a PPI drip. Diet is advanced and she is tolerating it. Biopsies negative for H pylori. Review of Systems Gastrointestinal: + melena; no abdominal pain, no nausea, no vomiting and no problem reported Physical Exam Constitutional: well developed Cardiovascular: Rate/Rhythm: regular rate Gastrointestinal (Abdomen): normal bowel sounds, soft, nontender, no hepatosplenomegaly Psychiatric: Orientation: alert and oriented x 3 Results & Data Results & Data Vital Signs (Past 12 Hours) Vital Signs Temp Pulse Resp BP Pulse Ox O2 Del Method 07/27/24 11:21 36.8 C 69 18 125/68 97 Room Air 07/27/24 07:39 36.7 C 69 18 114/70 97 Room Air 07/27/24 03:09 36.3 C L 71 16 110/70 99 Room Air 07/27/24 00:59 36.9 C 61 20 101/59 L 95 Room Air PG Care Time/CCT Total # of Minutes Spent Total Time Spent with Patient: Total time spent is greater than 50% in coordination of care (as documented) at patient's floor/unit and/or counseling patient: Coding Level of Care Code 29226 SUB INP/OBS CARE 2/35MIN Diagnoses Duodenal ulcer K26.9
--- NOTE | 2024-07-29 18:30 | Discharge Summary ---
Discharge Summary Date of Service July 27, 2024 Principal Dx & Hospital Course #1 = Principal Diagnosis (1) GI bleed: (2) Diabetes mellitus type 2, insulin dependent: Plan 63-year-old female PMHx T2DM on insulin, gastritis, HTN, OA, hypercholesterolemia, and insomnia who presents w/ abdominal pain w/ associated N/V starting initially 1 day [employer]. Pt was out to eat 2 nights [employer], experienced N/V the early AM 1 day [employer], and has had worsening abdominal pain and associated headaches. States that her vomit was dark brown/black in color and was described as thick in consistency. also reported a black stool, epigastric pain. Takes Piroxicam twice daily x months, Recent addition of 81 mg aspirin by cardiology. CTAP w/ no acute findings. Received 1L NSS and pantoprazole in ED. # acute upper GI bleed - acute duodenal ulcer with hemorrhage requiring epinephrine injection and cautery likely NSAID induced- multiple gastric and duodenal ulcerations on EGD 07/26, including deep actively bleeding duodenal ulcer with visible vessel, injected with epinephrine and cauterized # acute blood loss anemia hemoglobin remains stable today 8.8-->9.7 without transfusion, vital signs stable, no further melena or hematemesis. tolerated advancement of diet and suitable for discharge home - treated with pantoprazole drip. continue pantoprazole 40 mg twice daily - stop NSAIDs - hold aspirin for the time being, has a significant amount of coronary artery calcium, negative stress test - reasonable to resume aspirin once duodenal ulcers have healed - ferrous sulfate every 48 hours on discharge for iron deficiency anemia. Ferritin was lowish at 13.5 - repeat CBC in 3 to 4 weeks, consider repeat iron studies - biopsy for H. pylori was negative - GI clinic should be calling her to schedule follow-up she has had longstanding arthritis which was managed by Dr. Young, now Dr. Samayoa. I think this is probably osteoarthritis, she also has back pain and sciatica. Management will be challenging without NSAIDS. May be reasonable to refer to Rheumatology, depending on what previous workup she has had. #DMT2, insulin dependent H/o DMT2, started on insulin ~ 1 year ago. At home regimen glargine 26U qAM, lispro 4U w/ breakfast and 5U with dinner, metformin. - Most recent A1C 05/2024 @ 7.6% - continue usual insulins and metformin #Sinusitis- started on Augmentin outpatient, symptoms overall controlled; continue Augmentin #Chronic pain, back- Gabapentin, oxycodone-acetaminophen #HTN- Chlorthalidone, lisinopril, amlodipine - resume #HLD- Rosuvastatin Notes For Next Care Provider Bleeding duodenal ulcer, another duodenal ulcer and several gastric ulcers, biopsy for H. pylori BID PPI perhaps indefinitely or until reduced by GI Gi supposed to schedule clinic follow up Follow up CBC, iron stores for anemia Medication Changes From Visit Stopped NSAIDS, held aspirin BID pantoprazole Iron every other day Admission HPI Per Admitting Provider 63-year-old female PMHx T2DM on insulin, gastritis, HTN, OA, hypercholesterolemia, and insomnia who presents w/ abdominal pain w/ associated N/V starting initially 1 day [employer]. Pt was out to eat 2 nights [employer], experienced N/V the early AM 1 day [employer], and has had worsening abdominal pain and associated headaches. States that her vomit was dark brown/black in color and was described as thick in consistency. Emesis x 4, and her last BM was 1 few hours before arrival to the ED. Also states that her BM have been black in color and she has been having some dizziness as well, unable to categorize this further. Her co- worker noted that she appeared more pale than usual the day of arrival. Does take anti-inflammatories twice daily and states that she has been doing this for years. History of ETOH use but no longer uses, per patient. ED workup reveals H/H 9.9/28.3, no WBC, Na 135, BUN 33, BUN/Cr ratio 44.6, and Ca 10.6. CTAP w/ no acute findings; stable umbilical hernia, stable dilated CBD, mild colonic fecal loading, stable R calcified pleura plaques and mild pleural effusion/thickening. Received 1L NSS and pantoprazole in ED. Please see Dr. Sullivan's attestation for adjustments/additions to the treatment plan. Discharge Exam PHYSICAL EXAMINATION Last 24h vital signs reviewed, see documentation in flowsheet General: comfortable appearing, no distress, awake sitting up in bed Exam unchanged today: HEENT: Normocephalic, atraumatic, pupils round and equal, sclerae anicteric, no conjunctival injection, moist mucus membranes Lungs: Normal respiratory effort. Heart: deferred Abdomen: S/NT/ND Bowel sounds present. Extremities: Warm, dry, well-perfused. No extremity edema. Neuro: Alert and oriented x 4, face symmetric, moves 4 extremities well Psych: Normal affect and behavior Discharge Plan Discharge Items Patient Disposition: Home - Self-Care Reason For Visit: GI BLEED Discharge Diagnosis: Acute upper GI bleeding caused by duodenal and gastric ulcers, NSAID related Acute blood loss anemia Activity: Resume your previous activity Non-emergency contact: Primary Care Provider and Dinkey Operator Call non-emergency contact if: you have any medication questions and your symptoms worsen Follow-up/Referrals: Flo Elaine DO [Physician] - Maira Samayoa MD [Primary Care Provider] - 08/04/24 10:30 am Danyel Lockhart MD [Physician] - Diet: Carb Consistent or DM2 Addtl Attending Provider Instructions: You were treated for bleeding ulcers - these were related to NSAIDS and aspirin. H. pylori testing was negative. Start with bland, [id number] food and if that's going well work your way back to your usual diet over several days or a week Take protonix (pantoprazole) twice a day - acid suppression Avoid all NSAIDS for now Acetaminophen is safe for your stomach Hold the aspirin until/unless resumed by physical education teacher or primary care. You may benefit from baby aspirin in the future, but not until the ulcers heal Follow up with gastroenterology For your anemia you are a little iron deficient - take ferrous sulfate every OTHER day. This works as well as daily or 2-3x a day with much less GI side effects. If you get constipated add daily miralax and/or senna tabs. These are available over the counter. You can have your blood count and iron stores checked in 4-6 weeks in primary care Talk to your Field Placement Director about alternative treatments for your arthritis It was a pleasure taking care of you in the hospital, Thelma Magaña MD Pending Studies at Discharge: No Stand-Alone Forms: My [email or web address], Smoking Cessation Medications and DC Order Prescriptions: New pantoprazole 40 mg tablet,delayed release (DR/EC) 40 mg PO BID Qty: 60 0RF ferrous sulfate 325 mg (65 mg iron) tablet,delayed release (DR/EC) 325 mg PO Q OTHER DAY Qty: 14 0RF Rx Instructions: buy over the counter Continued (DME) lancets [OneTouch Delica Plus Lancet] 33 gauge misc See Rx Instructions .Route Qty: 200 3RF Rx Instructions: Test twice a day (DME) pen needle, diabetic 32 gauge x 5/32" needle See Rx Instructions .Route Qty: 400 3RF Rx Instructions: To use with insulin injections 4x/day (DME) FreeStyle Twin 2 Sensor Kit See Rx Instructions .Route Qty: 2 5RF Rx Instructions: Change every 14 days to monitor glucose levels oxycodone-acetaminophen 5-325 mg tablet 1 - 2 tab PO BID PRN (Reason: pain) Qty: 60 0RF Rx Instructions: take 1-2 tab PO BID PRN insulin lispro [Admelog SoloStar U-100 Insulin] 100 unit/mL insulin pen See Rx Instructions subcut .COMPLEX MDD 13 units Qty: 15 1RF Rx Instructions: Inject up to 4 units subcutaneously with breakfast and lunch and inject 5 units with dinner mecobalamin (vitamin B12) 0 mg PO QAM methocarbamol 500 mg tablet 500 mg PO BID PRN (Reason: muscle cramping) (DME) lancets [OneTouch Delica Lancets] 30 gauge misc See Dose Instructions .ROUTE .MEDSUPPLY Qty: 25 Rx Instructions: As directed (DME) FreeStyle Twin 2 [place] Misc See Rx Instructions .Route Qty: 1 0RF Rx Instructions: Use as directed to monitor glucose levels (DME) OneTouch Verio test strips Strip See Rx Instructions .Route Qty: 200 3RF Rx Instructions: test blood sugar twice daily (DME) blood-glucose meter [OneTouch Verio Flex Start] Kit See Rx Instructions .Route Qty: 1 0RF Rx Instructions: As directed amlodipine 5 mg tablet 5 mg PO DAILY Qty: 90 3RF chlorthalidone 25 mg tablet 25 mg PO QAM Qty: 90 3RF rosuvastatin 20 mg tablet 20 mg PO HS Qty: 90 3RF metformin 500 mg tablet extended release 24 hr 1,000 mg PO BID Qty: 360 3RF lisinopril 40 mg tablet 40 mg PO QAM Qty: 90 3RF fluticasone propionate 50 mcg/actuation spray,suspension 2 spray intranasal QAM PRN (Reason: Congestion) Qty: 48 3RF Rx Instructions: administer into each nostril cranberry 450 mg Tablet 0 mg PO QAM Qty: 0 Rx Instructions: Patient is unsure of strength, but takes 2 tablets every morning diclofenac sodium 1 % gel 2 g topical QID PRN (Reason: Pain) Rx Instructions: apply to right shoulder every 6 hours as needed. gabapentin 300 mg capsule 600 mg PO HS insulin glargine U-300 conc 300 unit/mL (1.5 mL) insulin pen 26 unit SUBCUT QAM gabapentin 300 mg capsule 300 mg PO QAM cholecalciferol (vitamin D3) [Vitamin D3] 25 mcg (1,000 unit) Tablet 0 mcg PO DAILY Rx Instructions: Patient unsure of dose Held aspirin [Adult Low Dose Aspirin] 81 mg tablet,delayed release (DR/EC) 81 mg PO DAILY Hold Instructions: Resume on 08/17/24. hold until resumed by GI or primary care Discontinued piroxicam 10 mg capsule 10 mg PO BID Qty: 180 3RF No Action (DME) FreeStyle Twin 3 Sensor Device See Rx Instructions .ROUTE .MEDSUPPLY Qty: 2 11RF Rx Instructions: As directed to change sensor every 14 days Discharge Orders: Discharge Order (Routine); Ordered 07/27/24 Ordered By: Thelma Magaña Admission Data Admit Date/Time: 07/24/24 21:05 Attending Provider: Thelma Magaña Admit Provider: Charmaien Sullivan Primary Care Provider: Maira Samayoa Other Providers: Chris Cooper; Consuelo Guzman Other Interventions: Discharge Summary Assessment (RN) Last Done: 07/27/24 13:08 Hospital Stay Data Consultations 07/24/24 22:47 Consult Gastroenterology Routine Procedures Performed Operation Date: 07/25/24 17:10 Actual Procedures p EGD Hemostasis - Chris Cooper MD s EGD Biopsy Cytology - Chris Cooper MD Diagnostic Imagining Performed 07/24/24 17:07 CT abd pelvis IV con only Stat Pending Results Patient Have Any Pending Studies at Discharge: No Discharge Instructions Given to Patient (Per Discharging Provider) You were treated for bleeding ulcers - these were related to NSAIDS and aspirin. H. pylori testing was negative. Start with bland, [id number] food and if that's going well work your way back to your usual diet over several days or a week Take protonix (pantoprazole) twice a day - acid suppression Avoid all NSAIDS for now Acetaminophen is safe for your stomach Hold the aspirin until/unless resumed by physical education teacher or primary care. You may benefit from baby aspirin in the future, but not until the ulcers heal Follow up with gastroenterology For your anemia you are a little iron deficient - take ferrous sulfate every OTHER day. This works as well as daily or 2-3x a day with much less GI side effects. If you get constipated add daily miralax and/or senna tabs. These are available over the counter. You can have your blood count and iron stores checked in 4-6 weeks in primary care Talk to your Field Placement Director about alternative treatments for your arthritis It was a pleasure taking care of you in the hospital, Thelma Magaña MD Total Time Total Time Spent Total Time Spent (In Minutes): <30 Coding Level of Care Code 86413 IN/OBS DISCH 30 MIN/LESS Diagnoses GI bleed K92.2 Diabetes mellitus type 2, insulin dependent E11.9; Z79.4
== END 2024-07-27 15:40 | disposition home or self-care (01) | DRG 378 ==
LOC: ED 16:33 → 2N 21:05 → SUATTDRO 21:05 → INTOOBSV 21:05 → 2N 21:40